=== PATIENT | male | born 1935 | race Hispanic/Latino ===

== ENCOUNTER 2016-11-22 15:50 | Inpatient (IN) | payer MEDICARE, BC ==
[2016-11-22 15:50] VITALS: PULSE 117; BMI 27.1
[2016-11-22] MEDS ORDERED: Albuterol-Ipratrop 3 mg / 0.5 (3 ml) UD ONE ×2 (16:06→18:22)
[2016-11-22] MEDS ORDERED: Albuterol 0.083% Inhal Sol (2.5 mg/3 mL) UD IH STA ×2 (16:13→18:06)
[2016-11-22] MEDS ORDERED: Albuterol-Ipratrop 3 mg / 0.5 (3 ml) UD INH STA ×2 (16:13→18:07)
[2016-11-22] MEDS ORDERED: Albuterol 0.083% Inhal Sol (2.5 mg/3 mL) UD ONE ×2 (16:18→18:23)
[2016-11-22 16:24] LABS: BASO # 0.1 K/uL (0.0-0.2); BASO % 0.6 % (0.0-2.0); EOS # 0.5 K/uL (0.0-0.7); EOS % 3.7 % (0.0-4.0); HEMATOCRIT 41.3 % (35.0-51.0); LYMPH % 8.1 % (20.0-40.0); MEAN CELL VOLUME 95.8 fL (80.0-94.0); MEAN CORPUSCULAR HEMOGLOBIN 31.9 pg (27.0-31.0); MEAN CORPUSCULAR HGB CONC 33.3 g/dL (33.0-37.0); MEAN PLATELET VOLUME 8.2 fL (7.2-11.7); MONO % 8.1 % (0.0-10.0); NRBC % 0.1 % (0.0-2.0); PLATELET COUNT 305 K/uL (130-400); RED CELL DISTRIBUTION WIDTH 15.9 % (11.5-14.5); WHITE BLOOD COUNT 12.4 K/uL (4.8-10.8)
[2016-11-22 16:33] LABS: INR 1.1
[2016-11-22 16:34] LABS: CHLORIDE 97 mmol/L (98-107)
[2016-11-22 16:35] LABS: POTASSIUM 4.3 mmol/L (3.6-5.2); SODIUM 136 mmol/L (132-148)
[2016-11-22 16:37] LABS: ALB/GLOB RATIO 1.2 (1.0-2.1); ALKALINE PHOSPHATASE 84 U/L (38-126); AST/SGOT 23 U/L (17-59); BILIRUBIN,TOTAL 1.1 mg/dL (0.2-1.3); CARBON DIOXIDE 28 mmol/L (22-30); GFR AFRICAN-AMERICAN > 60; TOTAL PROTEIN 7.6 g/dL (6.3-8.3)
[2016-11-22 16:38] LABS: ALT/SGPT 26 U/L (21-72); BLOOD UREA NITROGEN 16 mg/dL (9-20); CALCIUM 8.9 mg/dl (8.6-10.4); GLUCOSE,RANDOM 113 mg/dL (75-110)
--- NOTE | 2016-11-22 16:42 | RAD ---
PROCEDURE: CHEST RADIOGRAPH, 1 VIEW HISTORY: SOB COMPARISON: 10/18/2016 FINDINGS: LUNGS: Clear. PLEURA: No definite pleural effusion. Opacity at the lateral left lung base may represent pleural fluid or pleural thickening. There is some blunting of left costophrenic angle as well. The right costophrenic angle is clear. There is no pneumothorax. CARDIOVASCULAR: Normal. OSSEOUS STRUCTURES: No significant abnormalities. VISUALIZED UPPER ABDOMEN: Normal. OTHER FINDINGS: None. IMPRESSION: Possible small left pleural effusion versus chronic pleural thickening. Otherwise unremarkable.
[2016-11-22 16:57] LABS: EOSINOPHIL 1 % (0-4); NEUTROPHIL 86 % (50-75); TOTAL CELLS COUNTED 100
--- NOTE | 2016-11-22 17:15 | C.PDOC ---
History Of Present Illness 81 y/o male presents to ED for evaluation of worsening shortness of breath. Patient states that he fell 1 month ago causing rib fracture with pneumothorax. Patient has pleural effusion on the left side. Patient states his symptoms have been ongoing since the injury but symptoms became worse yesterday. Otherwise, denies cough, fever, chills, nausea, vomiting, chest pain, or leg edema. Time Seen by Provider: 11/22/16 15:58 Chief Complaint (Nursing): Shortness Of Breath History Per: Patient History/Exam Limitations: no limitations Onset/Duration Of Symptoms: Days Current Symptoms Are (Timing): Still Present Severity: None Pain Scale Rating Of: 0 Associated Symptoms: denies: Fever, Chills, Sweating, Chest Pain, Bloody Cough, Productive Cough, Heart Racing, Leg/Calf Pain, Ankle/Leg Swelling, Dizziness, Light-headedness, Anxiety, Tingling In Hands Or Face, Musle Spasms In Hands Or Feet Additional History Per: Patient Past Medical History Reviewed: Historical Data, Nursing Documentation, Vital Signs Vital Signs: Last Vital Signs Temp 97.4 F L 11/22/16 15:55 Pulse 110 H 11/22/16 18:02 Resp 18 11/22/16 18:02 BP 134/83 11/22/16 18:02 Pulse Ox 98 11/22/16 18:40 - Medical History PMH: Anxiety, Asthma, COPD, HTN, Hypercholesterolemia - [facility] Procedures CATARAC PHACOEMULS/ASPIR (04/23/03) INSERT LENS AT CATAR EXT (04/23/03) Family History: States: Unknown Family Hx - Social History Hx Alcohol Use: No Hx Substance Use: No - Immunization History Hx Tetanus Toxoid Vaccination: No Hx Influenza Vaccination: No Hx Pneumococcal Vaccination: No Review Of Systems Except As Marked, All Systems Reviewed And Found Negative. Constitutional: Negative for: Fever, Chills Cardiovascular: Negative for: Chest Pain, Palpitations Respiratory: Positive for: Shortness of Breath. Negative for: Cough Gastrointestinal: Negative for: Nausea, Vomiting, Abdominal Pain Neurological: Negative for: Headache, Dizziness Physical Exam - Physical Exam Appears: Non-toxic, Other (In mild to moderate respiratory distress) Skin: Warm, Dry, No Rash Head: Normacephalic Eye(s): bilateral: Normal Inspection Oral Mucosa: Moist Neck: Supple Cardiovascular: Rhythm Irregular (Irregularly irregular, tachycardic) Respiratory: Accessory Muscle Use (moderate), No Rales, No Rhonchi, Wheezing ( diffuse expiratory wheezing bilaterally), Other (Pt speaking in short sentences) Gastrointestinal/Abdominal: Soft, No Tenderness Back: No CVA Tenderness Extremity: Normal ROM, No Pedal Edema, Capillary Refill (<2 secs.), No Deformity , Other (scattered abrasions to b/l shins) Neurological/Psych: Oriented x3, Normal Speech ED Course And Treatment - Laboratory Results Result Diagrams: 11/22/16 16:18 11/22/16 16:18 ECG: Interpreted By Me, Viewed By Me (atrial fibrillation 124 bpm (RVR), normal axis, no acute ST/T wave changes) ECG Interpretation: Abnormal O2 Sat by Pulse Oximetry: 98 (RA) Pulse Ox Interpretation: Normal - Other Rad CXR X-Ray: Viewed By Me, Read By Radiologist Interpretation: Accession No. : [id number]. Patient Name / ID : TEETEE MARISCAL / [id number]. Exam Date : 11/22/2016 16:18:22 ( Approved ). Study Comment : Sex / Age : M / 81Y. Creator : David Roberts MD. Dictator : David Roberts MD. Rackman : Postal Service Clerk : David Roberts MD. Approver2 : Report Date : 11/22/2016 16:41:29. My Comment : . PROCEDURE: CHEST RADIOGRAPH, 1 VIEW. HISTORY: SOB. COMPARISON: 10/18/2016. FINDINGS: LUNGS: Clear. PLEURA: No definite pleural effusion. Opacity at the lateral left lung base may represent pleural fluid or pleural thickening. There is some blunting of left costophrenic angle as well. The right costophrenic angle is clear. There is no pneumothorax. CARDIOVASCULAR: Normal. OSSEOUS STRUCTURES: No significant abnormalities. VISUALIZED UPPER ABDOMEN: Normal. OTHER FINDINGS: None. IMPRESSION: Possible small left pleural effusion versus chronic pleural thickening. Otherwise unremarkable. Progress Note: Blood work, UA, CXR ordered and reviewed. Patient given IV solumedrol, neb treatments and placed on Vapotherm. Disposition - Disposition Forms: Livevol (Romansh) - Scribe Statement The provider has reviewed the documentation as recorded by the Scribe Skyler Andre All medical record entries made by the Scribe were at my direction and personally dictated by me. I have reviewed the chart and agree that the record accurately reflects my personal performance of the history, physical exam, medical decision making, and the department course for this patient. I have also personally directed, reviewed, and agree with the discharge instructions and disposition.
[2016-11-22] MEDS: Albuterol-Ipratrop 3 mg / 0.5 (3 ml) UD INH SCH (22:55)
[2016-11-23] MEDS: Albuterol-Ipratrop 3 mg / 0.5 (3 ml) UD INH SCH ×4 (01:21→19:45)
[2016-11-23 11:02] LABS: ABG ALLEN TEST YES; ARTERIAL BLOOD HGB O2 SAT 93.4 % (95.0-98.0); DRAW SITE RRA; HHB 3.8 % (0.0-5.0); METHEMOGLOBIN 0.7 % (0.0-3.0)
--- NOTE | 2016-11-23 15:32 | CARD ---
APPROVED REPORT EKG Measurement Heart [id number] <Conclusion> Atrial fibrillation with rapid ventricular response Abnormal ECG
--- NOTE | 2016-11-23 19:36 | PCM.PSYCH ---
Initial Psychiatric Evaluation - Initial Psychiatric Evaluation Type of Admission: Voluntary Legal Status: Capacity Chief Complaint (in patient's own words): "I was very despondent" History of Present Illness and Precipitating Events: The pt is seen, chart reviewed and case discussed Consultation was asked for his suicide remark. 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 The patient admits to having an accident and he broke his ribs and hurt his head about 6 weeks ago. He came year with breathing problems. He was told, allegedly, that he will have to stay 6 weeks and that made him feel "extremely sad" and somewhat angry. He said he would rather . He claims he didn't mean it and he has no plan or intention to hurt himself but at the same time he states that he cannot state that long no matter what. He reports mildly depressive symptoms even before admission but nothing severe and no major anxiety issues. No cyn or psychosis elicited No drug use but he drinks 1/2 bottle of wince everyday. he says he has been drinking "all (his) life." Denies ever having withdrawal sxs or treatment for alcohol. Past psych history: Denies Medical history: As per chart Family psych history: Denies Current Medications: Active Medications Generic Name Dose Route Start Last Admin Trade Name Cy PRN Reason Stop Dose Admin Albuterol/Ipratropium 3 ml 11/22/16 20:00 11/23/16 13:34 Duoneb 3 Mg/0.5 Mg (3 Ml) Ud INH 3 ml RQ6 [facility] Administration Apixaban 2.5 mg 11/22/16 22:00 11/23/16 10:34 Eliquis PO 2.5 mg Q12 [facility] Administration Clonazepam 0.5 mg 11/22/16 22:30 11/22/16 22:41 Klonopin PO 0.5 mg HS [facility] Administration Diltiazem HCl 30 mg 11/22/16 22:00 11/23/16 14:50 Cardizem PO 30 mg QID [facility] Administration Furosemide 20 mg 11/23/16 10:00 11/23/16 10:34 Lasix PO 20 mg DAILY [facility] Administration Mirtazapine 7.5 mg 11/23/16 22:00 Remeron PO HS [facility] Pneumococcal Polyvalent Vaccine 0.5 ml 11/24/16 10:00 Pneumovax 23 Vaccine IM 11/24/16 10:01 .ONCE ONE Quetiapine Fumarate 25 mg 11/23/16 10:00 11/23/16 10:34 Seroquel PO 25 mg DAILY [facility] Administration Past Psychiatric History - Past Psychiatric History Previous Treatment History: None Pertinent Medical Hx (Current Medical&Sleep Prob, Allergies): Allergies Allergy/AdvReac Type Severity Reaction Status Date / Time No Known Allergies Allergy Verified 11/22/16 15:54 metFORMIN [glucOPHAGE] 500 mg PO DAILY 07/11/16 Amlodipine Bes/Olmesartan Med [Amlodipine-Olmesartan 5-20 mg] 1 each PO Metoprolol Tartrate 25 mg PO DAILY 11/22/16 Review of Systems - Psychiatric Psychiatric: Abnormal Sleep Pattern, Anhedonia, Difficulty Concentrating, Irritability. absent: Hallucinations, Homicidal Ideation, Paranoia, Suicidal Ideation Mental Status Examination - Personal Presentation Personal Presentation: Looks stated age - Affect Affect: Constricted - Motor Activity Motor Activity: Calm - Reliability in Providing Information Reliability in Providing Information: Good - Speech Speech: Organized - Mood Mood: Depressed (mild), Anxious (at times) - Formal Thought Process Formal Thought Process: No Impairment - Cognitive Functions Orientation: Person, Place, Situation, Time Sensorium: Alert Attention/Concentration: Easily distracted Estimate of Intelligence: Average Judgement: Intact, as evidence by: Insight regarding need for hospitalization Memory: Recent intact, as evidence by: Ability to recall events of the day, Remote intact, as evidenced by: Abilit to recall sig. life events - Risk Risk: Diminished functioning - Strength & Assets Inventory Strength & Assets Inventory: Cooperative - Limitations Limitations: Other DSM 5 DX - DSM 5 DSM 5 Diagnosis: Depressive d/o - unspecified r/o adjustment d/o with depressed mood alcohol use d/o - mild (or unspecified severity) - Recommended/Plan of Treatment Treatment Recommendations and Plan of Treatment: Remeron 7.5 mg for now Support and psychoeducation Monitor sxs Currently no need for 1:1 - discontinued He contracts for safety and will follow his discussed safety plan. 32 min
[2016-11-24] MEDS: Albuterol-Ipratrop 3 mg / 0.5 (3 ml) UD INH SCH ×4 (01:44→19:52)
[2016-11-24] MEDS ORDERED: Influenza Vaccine 60 mcg/0.5 mL SYR (4YR UP) IM ONE (10:00)
[2016-11-24] MEDS ORDERED: Pneumococcal 23-Valent Vaccine IM ONE (10:00)
--- NOTE | 2016-11-24 15:13 | PCM.PYCHPN ---
Psychiatric Progress Note - Psychiatric Progress Note Patient seen today, length of contact: 16 min Patient Chief Complaint: Follow up consult for pt's suicide remark the other day "I feel fine" Problems Identified/Issues Discussed: Pt is seen at bedside and chart reviewed. He reports to feel well today and in a pleasant mood because his girlfriend plans to visit this afternoon. He emphasizes his desire to go home but otherwise has no complaints and denies anxiety, depression and SI. Pt is compliant with medications and reports no side effects. Support and psychoeducation given. Medication Change: No Medical Record Reviewed: Yes Mental Status Examination - Cognitive Function Orientation: Person, Place, Situation, Time Memory: Intact Attention: WNL Concentration: WNL Association: WNL Fund of Knowledge: WNL - Mood Mood: Anxious - Affect Affect: Constricted - Speech Speech: Appropriate - Formal Thought Process Formal Thought Process: No Impairment - Suicidal Ideation Suicidal Ideation: No - Homicidal Ideation Homicidal Ideation: No Goal/Treatment Plan - Goal/Treatment Plan Progress Toward Problem(s) and Goals/Treatment Plan: Remeron 7.5 mg for now Support and psychoeducation Monitor sxs Currently no need for 1:1 - discontinued He contracts for safety and will follow his discussed safety plan. 16 min
--- NOTE | 2016-11-24 21:31 | CP.PCM.PN ---
Subjective - Date & Time of Evaluation Date of Evaluation: 11/23/16 Time of Evaluation: 21:31 - Subjective Subjective: Patient today was combining of somewhat very depression. He was combining of some feeling depressed. Also killing himself. Immediately psychotic evaluation was called. Insomnia noted. No chest pain. Significant shortness of breath noted. Currently on continuous CPAP. On examination: Respiratory distress with the breathing room air noted. Oxygen minimal improvement. But patient needs a continuous BiPAP on and off Clinically otherwise stable. 81-year-old male with a history of hypertension, hypercholesterolemia, atrial fibrillation. On anticoagulations. Patient had a multiple fractures on the left side, complicated with the flail chest. And associated with acute on chronic respiratory failure. Patient is currently having significant mechanical problems with this patient because of the left lung collapse dynamically happens with the each time he breathes in. Patient will need a positive pressure ventilation. Patient is not a surgical candidate. He will only benefited by having you noninvasive ventilation, in the form of BiPAP, or Portable ventilators. Patient definitely medically needed for the respiratory insufficiency. GI prophylaxis. We'll continue the current medical management. Objective - Vital Signs/Intake and Output Vital Signs (last 24 hours): Temp Pulse Resp BP Pulse Ox 97.4 F L 103 H 22 153/83 H 98 11/24/16 15:00 11/24/16 17:30 11/24/16 15:00 11/24/16 15:00 11/24/16 15:00 Intake and Output: 11/24/16 11/25/16 18:59 06:59 Intake Total 240 Balance 240 - Medications Medications: Current Medications Albuterol/Ipratropium (Duoneb 3 Mg/0.5 Mg (3 Ml) Ud) 3 ml INH RQ6 [facility] Last Admin: 11/24/16 19:52 Dose: 3 ml Apixaban (Eliquis) 2.5 mg PO Q12 [facility] Last Admin: 11/24/16 09:52 Dose: 2.5 mg Clonazepam (Klonopin) 0.5 mg PO HS [facility] Last Admin: 11/23/16 21:52 Dose: 0.5 mg Diltiazem HCl (Cardizem) 30 mg PO QID [facility] Last Admin: 11/24/16 17:35 Dose: 30 mg Furosemide (Lasix) 20 mg PO DAILY [facility] Last Admin: 11/24/16 09:52 Dose: 20 mg Mirtazapine (Remeron) 7.5 mg PO HS [facility] Last Admin: 11/23/16 21:52 Dose: 7.5 mg Quetiapine Fumarate (Seroquel) 25 mg PO DAILY [facility] Last Admin: 11/24/16 09:52 Dose: 25 mg - Labs Labs: 11/22/16 16:18 11/22/16 16:18 PT 12.4 SECONDS (9.7-12.2) H 11/22/16 16:18 INR 1.1 11/22/16 16:18 APTT 29 SECONDS (21-34) 11/22/16 16:18
--- NOTE | 2016-11-24 21:31 | CP.PCM.HP ---
History of Present Illness - History of Present Illness History of Present Illness: Chief complaints: Shortness of breath. History of present illness: 81-year-old male with history of abdominal aortic aneurysm, hypertension, atrial fibrillation on anticoagulation, recently had a fall, injury to the left side of the chest. 2 months ago, patient was hospitalized at [facility], at the time patient was noted to have a multiple rib fractures on the left side, developed hydropneumothorax, and also hemopneumothorax. Patient also developed subcutaneous emphysema. Patient condition slowly got worse, complicated, and again he went to the [facility] and hospitalized. He stayed at least 2-3 times in the hospital. He is stayed in the [facility], each time, patient was sent home without any proper follow-up. This time, patient was able to see the claims collector, but at that time, patient was not able to breathe, and family brought him to the [facility] emergency room. Patient was combining of severe SOB, even at rest. Patient was placed on oxygen in the emergency room, bronchodilators were given. He was feeling slightly better. Patient condition before the fracture was okay. He was able to manage himself. But, after the fracture. His condition got worse. He is having severe shortness of breath even at rest. Unable to move. He is not able to sleep or lie down flat because of the shortness of breath. Past medical history: Hypertension, hypercholesterolemia, atrial fibrillation, history of aortic aneurysm. Surgical history: Abdominal aortic aneurysm repair. Allergies no known drug allergy. Personal history: Used to be a heavy smoker in the past to quit many years ago, denies any alcohol. Family history noncontributory. Review of systems: Combining of no headache, cough noted, cough with shortness of breath, wheezing and chest tightness. Patient is having some difficulty even at rest. On examination: Vital signs mild tachycardia, arrhythmia noted. Chest very reduced air entry in the left lower lung field. There is a significant flail chest, noted on the left side. Patient is having difficulty in breathing in at rest. Accessory muscle usage noted. Significant inward movement of the left lung with the inspiration noted on the left side. irregular heart sounds. Abdomen soft. Edema bilaterally, minimally noted. Patient's labs reviewed. Nonspecific. Chest x-ray showing multiple fractures in the left lung. Atelectatic left lower lung. Pleural effusion. Blood gas analysis reviewed. Assessment and recommendation: 81-year-old male with a history of hypertension, hypercholesterolemia, atrial fibrillation. On anticoagulations. Patient had a multiple fractures on the left side, complicated with the flail chest. And associated with acute on chronic respiratory failure. Patient is currently having significant mechanical problems with this patient because of the left lung collapse dynamically happens with the each time he breathes in. Patient will need a positive pressure ventilation. Patient is not a surgical candidate. He will only benefited by having you noninvasive ventilation, in the form of BiPAP, or Portable ventilators. Patient definitely medically needed for the respiratory insufficiency. GI prophylaxis. We'll continue the current medical management. Present on Admission - Present on Admission Any Indicators Present on Admission: No History of DVT/PE: No History of Uncontrolled Diabetes: No Urinary Catheter: No Decubitus Ulcer Present: No Past Patient History - Infectious Disease Hx of Infectious Diseases: None - Past Medical History & Family History Past Medical History?: Yes - Past Social History Smoking Status: Former Smoker - CARDIAC Hx Cardiac Disorders: Yes Hx Hypercholesterolemia: Yes Hx Hypertension: Yes - PULMONARY Hx Chronic Obstructive Pulmonary Disease (COPD): Yes - NEUROLOGICAL Hx Neurological Disorder: No - HEENT Hx HEENT Problems: No - RENAL Hx Chronic Kidney Disease: No - ENDOCRINE/METABOLIC Hx Diabetes Mellitus Type 2: Yes - HEMATOLOGICAL/ONCOLOGICAL Hx Blood Disorders: No - INTEGUMENTARY Hx Dermatological Problems: No - MUSCULOSKELETAL/RHEUMATOLOGICAL Hx Musculoskeletal Disorders: Yes Hx Falls: Yes - GASTROINTESTINAL Hx Gastrointestinal Disorders: No - GENITOURINARY/GYNECOLOGICAL Hx Genitourinary Disorders: No - PSYCHIATRIC Hx Psychophysiologic Disorder: Yes Hx Anxiety: Yes Hx Substance Use: No - SURGICAL HISTORY Hx Surgeries: Yes Hx Herniorrhaphy: Yes - ANESTHESIA Hx Anesthesia: Yes Hx Anesthesia Reactions: No Hx Malignant Hyperthermia: No Has any member of the family had a problem w/ anesthesia?: No Meds Allergies/Adverse Reactions: Allergies Allergy/AdvReac Type Severity Reaction Status Date / Time No Known Allergies Allergy Verified 11/22/16 15:54 Results - Vital Signs Recent Vital Signs: Last Vital Signs Temp 97.4 F L 11/24/16 15:00 Pulse 103 H 11/24/16 17:30 Resp 22 11/24/16 15:00 BP 153/83 H 11/24/16 15:00 Pulse Ox 98 11/24/16 15:00 - Labs Result Diagrams: 11/22/16 16:18 11/22/16 16:18 Labs: Laboratory Results - last 24 hr 11/23/16 11/24/16 11/24/16 21:43 06:49 11:17 POC Glucose (mg/dL) 124 H 97 134 H
--- NOTE | 2016-11-24 21:31 | CP.PCM.PN ---
Subjective - Date & Time of Evaluation Date of Evaluation: 11/24/16 Time of Evaluation: 21:31 - Subjective Subjective: Patient overall condition remains same. His respiratory status is not improving. Significant shortness of breath at rest noted. Left lung. Dynamic collapse identified. On examination: Vital signs stable. Chest reduced, a decreased air entry, left lung. Regular heart sounds. Assessment/condition: 81-year-old male with a history of hypertension, hypercholesterolemia, atrial fibrillation. On anticoagulations. Patient had a multiple fractures on the left side, complicated with the flail chest. And associated with acute on chronic respiratory failure. Patient is continuously using the BiPAP. Definitely clinically better. Patient has medical improvement with the BiPAP. In my opinion, patient will need a medically necessary to have BiPAP, noninvasive ventilation for his overall improvement. Objective - Vital Signs/Intake and Output Vital Signs (last 24 hours): Temp Pulse Resp BP Pulse Ox 97.4 F L 103 H 22 153/83 H 98 11/24/16 15:00 11/24/16 17:30 11/24/16 15:00 11/24/16 15:00 11/24/16 15:00 Intake and Output: 11/24/16 11/25/16 18:59 06:59 Intake Total 240 Balance 240 - Medications Medications: Current Medications Albuterol/Ipratropium (Duoneb 3 Mg/0.5 Mg (3 Ml) Ud) 3 ml INH RQ6 [facility] Last Admin: 11/24/16 19:52 Dose: 3 ml Apixaban (Eliquis) 2.5 mg PO Q12 [facility] Last Admin: 11/24/16 09:52 Dose: 2.5 mg Clonazepam (Klonopin) 0.5 mg PO HS [facility] Last Admin: 11/23/16 21:52 Dose: 0.5 mg Diltiazem HCl (Cardizem) 30 mg PO QID [facility] Last Admin: 11/24/16 17:35 Dose: 30 mg Furosemide (Lasix) 20 mg PO DAILY [facility] Last Admin: 11/24/16 09:52 Dose: 20 mg Mirtazapine (Remeron) 7.5 mg PO HS [facility] Last Admin: 11/23/16 21:52 Dose: 7.5 mg Quetiapine Fumarate (Seroquel) 25 mg PO DAILY [facility] Last Admin: 10/06/17 09:52 Dose: 25 mg - Labs Labs: 11/22/16 16:18 11/22/16 16:18 PT 12.4 SECONDS (9.7-12.2) H 11/22/16 16:18 INR 1.1 11/22/16 16:18 APTT 29 SECONDS (21-34) 11/22/16 16:18
[2016-11-25] MEDS: Albuterol-Ipratrop 3 mg / 0.5 (3 ml) UD INH SCH ×4 (01:10→19:41)
--- NOTE | 2016-11-25 16:06 | CP.PCM.PN ---
Subjective - Date & Time of Evaluation Date of Evaluation: 11/25/16 Time of Evaluation: 16:05 - Subjective Subjective: please disregard---entered in error. Objective - Vital Signs/Intake and Output Vital Signs (last 24 hours): Temp Pulse Resp BP Pulse Ox 97.7 F 84 20 135/71 99 11/25/16 08:29 11/25/16 14:23 11/25/16 08:29 11/25/16 09:27 11/25/16 08:29 Intake and Output: 11/25/16 11/25/16 06:59 18:59 Intake Total 110 Balance 110 - Medications Medications: Current Medications Albuterol/Ipratropium (Duoneb 3 Mg/0.5 Mg (3 Ml) Ud) 3 ml INH RQ6 [facility] Last Admin: 11/25/16 14:22 Dose: 3 ml Apixaban (Eliquis) 2.5 mg PO Q12 [facility] Last Admin: 11/25/16 09:29 Dose: 2.5 mg Clonazepam (Klonopin) 0.5 mg PO HS [facility] Last Admin: 11/24/16 21:58 Dose: 0.5 mg Diltiazem HCl (Cardizem) 30 mg PO QID [facility] Last Admin: 11/25/16 14:40 Dose: 30 mg Furosemide (Lasix) 20 mg PO DAILY [facility] Last Admin: 11/25/16 09:27 Dose: 20 mg Mirtazapine (Remeron) 7.5 mg PO HS [facility] Last Admin: 11/24/16 22:03 Dose: 7.5 mg Quetiapine Fumarate (Seroquel) 25 mg PO DAILY [facility] Last Admin: 11/25/16 09:28 Dose: 25 mg - Labs Labs: 11/22/16 16:18 11/22/16 16:18 PT 12.4 SECONDS (9.7-12.2) H 11/22/16 16:18 INR 1.1 11/22/16 16:18 APTT 29 SECONDS (21-34) 11/22/16 16:18
[2016-11-26] MEDS: Albuterol-Ipratrop 3 mg / 0.5 (3 ml) UD INH SCH ×4 (01:21→19:33)
--- NOTE | 2016-11-26 17:37 | CP.PCM.PN ---
Subjective - Date & Time of Evaluation Date of Evaluation: 11/25/16 Time of Evaluation: 17:37 - Subjective Subjective: Since overall condition remains same. No chest pain. Difficulty in breathing noted. Severe SOB without BiPAP noted. Patient is currently needing oxygen. Also, he needs BiPAP at this time. Vital signs stable. Assessment and recommendation: 81 male with a history of hypertension, emphysema, COPD, chronic respiratory failure, chronic respiratory insufficiency. Patient had multiple to fracture. Complicated with the flail chest. Acute on chronic respiratory failure, continue the noninvasive ventilation Objective - Vital Signs/Intake and Output Vital Signs (last 24 hours): Temp Pulse Resp BP Pulse Ox 97.1 F L 106 H 20 121/86 98 11/26/16 15:20 11/26/16 15:20 11/26/16 15:20 11/26/16 15:20 11/26/16 15:20 - Medications Medications: Current Medications Albuterol/Ipratropium (Duoneb 3 Mg/0.5 Mg (3 Ml) Ud) 3 ml INH RQ6 [facility] Last Admin: 11/26/16 13:40 Dose: 3 ml Apixaban (Eliquis) 2.5 mg PO Q12 [facility] Last Admin: 11/26/16 09:40 Dose: 2.5 mg Clonazepam (Klonopin) 0.5 mg PO HS [facility] Last Admin: 11/25/16 21:49 Dose: 0.5 mg Diltiazem HCl (Cardizem) 30 mg PO QID [facility] Last Admin: 11/26/16 13:34 Dose: 30 mg Furosemide (Lasix) 20 mg PO DAILY [facility] Last Admin: 11/26/16 09:41 Dose: 20 mg Mirtazapine (Remeron) 7.5 mg PO HS [facility] Last Admin: 11/25/16 21:49 Dose: 7.5 mg Quetiapine Fumarate (Seroquel) 25 mg PO DAILY [facility] Last Admin: 11/26/16 09:40 Dose: 25 mg - Labs Labs: 11/22/16 16:18 11/22/16 16:18 PT 12.4 SECONDS (9.7-12.2) H 11/22/16 16:18 INR 1.1 11/22/16 16:18 APTT 29 SECONDS (21-34) 11/22/16 16:18
--- NOTE | 2016-11-26 17:37 | CP.PCM.PN ---
Subjective - Date & Time of Evaluation Date of Evaluation: 11/26/16 Time of Evaluation: 17:37 - Subjective Subjective: Since overall condition remains same. No chest pain. Difficulty in breathing noted. Severe SOB without BiPAP noted. Patient is currently needing oxygen. Also, he needs BiPAP at this time. Vital signs stable. Assessment and recommendation: 81 male with a history of hypertension, emphysema, COPD, chronic respiratory failure, chronic respiratory insufficiency. Patient had multiple to fracture. Complicated with the flail chest. Acute on chronic respiratory failure, continue the noninvasive ventilation Objective - Vital Signs/Intake and Output Vital Signs (last 24 hours): Temp Pulse Resp BP Pulse Ox 97.1 F L 106 H 20 121/86 98 11/26/16 15:20 11/26/16 15:20 11/26/16 15:20 11/26/16 15:20 11/26/16 15:20 - Medications Medications: Current Medications Albuterol/Ipratropium (Duoneb 3 Mg/0.5 Mg (3 Ml) Ud) 3 ml INH RQ6 [facility] Last Admin: 11/26/16 13:40 Dose: 3 ml Apixaban (Eliquis) 2.5 mg PO Q12 [facility] Last Admin: 11/26/16 09:40 Dose: 2.5 mg Clonazepam (Klonopin) 0.5 mg PO HS [facility] Last Admin: 11/25/16 21:49 Dose: 0.5 mg Diltiazem HCl (Cardizem) 30 mg PO QID [facility] Last Admin: 11/26/16 13:34 Dose: 30 mg Furosemide (Lasix) 20 mg PO DAILY [facility] Last Admin: 11/26/16 09:41 Dose: 20 mg Mirtazapine (Remeron) 7.5 mg PO HS [facility] Last Admin: 11/25/16 21:49 Dose: 7.5 mg Quetiapine Fumarate (Seroquel) 25 mg PO DAILY [facility] Last Admin: 11/26/16 09:40 Dose: 25 mg - Labs Labs: 11/22/16 16:18 11/22/16 16:18 PT 12.4 SECONDS (9.7-12.2) H 11/22/16 16:18 INR 1.1 11/22/16 16:18 APTT 29 SECONDS (21-34) 11/22/16 16:18
[2016-11-27] MEDS: Albuterol-Ipratrop 3 mg / 0.5 (3 ml) UD INH SCH ×4 (01:19→19:36)
--- NOTE | 2016-11-27 15:22 | CP.PCM.PN ---
Subjective - Date & Time of Evaluation Date of Evaluation: 11/27/16 Time of Evaluation: 15:20 - Subjective Subjective: PT SEEN AND UPDATED REGARDING HOME O2. PER CM PAT PT'S DOCUMENTATION AND NEED FOR TRILOGY SENT TO [employer]---BEING THAT TODAY IS A HOLIDAY THESE COMPANIES AND REPS ARE ON VACATION AND WILL RETURN TOMORROW. 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 DISCUSSED THIS AT LENGTH WITH THE PT AND GIRLFRIEND AT BEDSIDE. NO FURTHER ORDERS. Objective - Vital Signs/Intake and Output Vital Signs (last 24 hours): Temp Pulse Resp BP Pulse Ox 97.3 F L 110 H 20 117/79 97 11/27/16 07:15 11/27/16 08:09 11/27/16 07:15 11/27/16 10:09 11/27/16 07:15 Intake and Output: 11/27/16 11/27/16 06:59 18:59 Intake Total 200 Output Total 600 Balance -400 - Medications Medications: Current Medications Albuterol/Ipratropium (Duoneb 3 Mg/0.5 Mg (3 Ml) Ud) 3 ml INH RQ6 [facility] Last Admin: 11/27/16 13:25 Dose: 3 ml Apixaban (Eliquis) 2.5 mg PO Q12 [facility] Last Admin: 11/27/16 10:09 Dose: 2.5 mg Clonazepam (Klonopin) 0.5 mg PO HS [facility] Last Admin: 11/26/16 22:25 Dose: 0.5 mg Diltiazem HCl (Cardizem) 30 mg PO QID [facility] Last Admin: 11/27/16 13:26 Dose: 30 mg Furosemide (Lasix) 20 mg PO DAILY [facility] Last Admin: 11/27/16 10:09 Dose: 20 mg Mirtazapine (Remeron) 7.5 mg PO HS [facility] Last Admin: 11/26/16 22:26 Dose: 7.5 mg Quetiapine Fumarate (Seroquel) 25 mg PO DAILY [facility] Last Admin: 11/27/16 10:12 Dose: 25 mg - Labs Labs: 11/22/16 16:18 11/22/16 16:18 PT 12.4 SECONDS (9.7-12.2) H 11/22/16 16:18 INR 1.1 11/22/16 16:18 APTT 29 SECONDS (21-34) 11/22/16 16:18
--- NOTE | 2016-11-28 16:03 | CP.PCM.PN ---
Subjective - Date & Time of Evaluation Date of Evaluation: 11/28/16 Time of Evaluation: 15:59 - Subjective Subjective: DISCUSSED HOME O2 WITH CM PAT AT LENGTH THROUGHOUT THE DAY. 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 PT MAY QUALIFY FOR BIPAP AT HOME BUT NEEDS NEW ABG DONE. BASED ON ABG RESULTS HE MAY OR MAY NOT QUALIFY FOR HOME O2 PER PAT. DR. ALLEN MADE AWARE; WE WILL ORDER ABG AT ROOM AIR AFTER AMBULATING IN HALLWAY WITH ASSISTANCE. IN THE MEANTIME, DR. ALLEN WILL HAVE HIS OFFICE CALL [facility] TO SEE IF THEY CAN GET A TRILOGY OR BIPAP FOR THE PT. PT AWARE THAT HE WILL BE D/C ONCE HOME O2 IS ARRANGED. NO FURTHER ORDERS AT THIS TIME. Objective - Vital Signs/Intake and Output Vital Signs (last 24 hours): Temp Pulse Resp BP Pulse Ox 98.0 F 79 20 117/79 94 L 11/28/16 15:45 11/28/16 15:45 11/28/16 15:45 11/28/16 15:45 11/28/16 15:45 Intake and Output: 11/28/16 11/28/16 06:59 18:59 Intake Total 220 Balance 220 - Medications Medications: Current Medications Apixaban (Eliquis) 2.5 mg PO Q12 [facility] Last Admin: 11/28/16 10:46 Dose: 2.5 mg Clonazepam (Klonopin) 0.5 mg PO HS [facility] Last Admin: 11/27/16 22:04 Dose: 0.5 mg Diltiazem HCl (Cardizem) 30 mg PO QID [facility] Last Admin: 11/28/16 14:44 Dose: 30 mg Furosemide (Lasix) 20 mg PO DAILY [facility] Last Admin: 11/28/16 10:47 Dose: 20 mg Mirtazapine (Remeron) 7.5 mg PO HS [facility] Last Admin: 11/27/16 22:04 Dose: 7.5 mg Quetiapine Fumarate (Seroquel) 25 mg PO DAILY [facility] Last Admin: 11/28/16 10:50 Dose: 25 mg - Labs Labs: 11/22/16 16:18 11/22/16 16:18 PT 12.4 SECONDS (9.7-12.2) H 11/22/16 16:18 INR 1.1 11/22/16 16:18 APTT 29 SECONDS (21-34) 11/22/16 16:18
--- NOTE | 2016-11-28 19:28 | CP.PCM.PN ---
Subjective - Date & Time of Evaluation Date of Evaluation: 11/28/16 Time of Evaluation: 19:28 Objective - Vital Signs/Intake and Output Vital Signs (last 24 hours): Temp Pulse Resp BP Pulse Ox 98.0 F 79 20 117/79 94 L 11/28/16 15:08 11/28/16 15:08 11/28/16 15:08 11/28/16 15:08 11/28/16 15:08 Intake and Output: 11/28/16 11/29/16 18:59 06:59 Intake Total 220 Balance 220 - Medications Medications: Current Medications Apixaban (Eliquis) 2.5 mg PO Q12 [facility] Last Admin: 11/28/16 10:46 Dose: 2.5 mg Clonazepam (Klonopin) 0.5 mg PO HS [facility] Last Admin: 11/27/16 22:04 Dose: 0.5 mg Diltiazem HCl (Cardizem) 30 mg PO QID [facility] Last Admin: 11/28/16 18:45 Dose: 30 mg Furosemide (Lasix) 20 mg PO DAILY [facility] Last Admin: 11/28/16 10:47 Dose: 20 mg Mirtazapine (Remeron) 7.5 mg PO HS [facility] Last Admin: 11/27/16 22:04 Dose: 7.5 mg Quetiapine Fumarate (Seroquel) 25 mg PO DAILY [facility] Last Admin: 11/28/16 10:50 Dose: 25 mg - Labs Labs: 11/22/16 16:18 11/22/16 16:18 PT 12.4 SECONDS (9.7-12.2) H 11/22/16 16:18 INR 1.1 11/22/16 16:18 APTT 29 SECONDS (21-34) 11/22/16 16:18
[2016-11-29 10:52] LABS: ARTERIAL BLOOD HGB O2 SAT 92.2 % (95.0-98.0); DRAW SITE L/B; HHB 4.9 % (0.0-5.0)
[2016-11-29 15:57] VITALS: RESP 20
--- NOTE | 2016-11-29 23:44 | CP.PCM.PN ---
Subjective - Date & Time of Evaluation Date of Evaluation: 11/29/16 Time of Evaluation: 23:44 Objective - Vital Signs/Intake and Output Vital Signs (last 24 hours): Temp Pulse Resp BP Pulse Ox 97.6 F 101 H 20 113/73 94 L 11/29/16 15:55 11/29/16 23:32 11/29/16 15:55 11/29/16 15:55 11/29/16 15:55 Intake and Output: 11/29/16 11/30/16 18:59 06:59 Intake Total 300 Balance 300 - Medications Medications: Current Medications Apixaban (Eliquis) 2.5 mg PO Q12 [facility] Last Admin: 11/29/16 22:41 Dose: 2.5 mg Clonazepam (Klonopin) 0.5 mg PO HS [facility] Last Admin: 11/29/16 22:40 Dose: 0.5 mg Diltiazem HCl (Cardizem) 30 mg PO QID [facility] Last Admin: 11/29/16 22:41 Dose: 30 mg Furosemide (Lasix) 20 mg PO DAILY [facility] Last Admin: 11/29/16 11:05 Dose: 20 mg Mirtazapine (Remeron) 7.5 mg PO HS [facility] Last Admin: 11/29/16 22:40 Dose: 7.5 mg Quetiapine Fumarate (Seroquel) 25 mg PO DAILY [facility] Last Admin: 11/29/16 11:05 Dose: 25 mg - Labs Labs: 11/22/16 16:18 11/22/16 16:18 PT 12.4 SECONDS (9.7-12.2) H 11/22/16 16:18 INR 1.1 11/22/16 16:18 APTT 29 SECONDS (21-34) 11/22/16 16:18
[2016-11-30 14:48] LABS: CHLORIDE 92 mmol/L (98-107); POTASSIUM 3.1 mmol/L (3.6-5.2); SODIUM 135 mmol/L (132-148)
[2016-11-30 14:51] LABS: BLOOD UREA NITROGEN 15 mg/dL (9-20); CARBON DIOXIDE 37 mmol/L (22-30); GFR AFRICAN-AMERICAN > 60; GLUCOSE,RANDOM 147 mg/dL (75-110)
[2016-11-30 14:52] LABS: CALCIUM 8.4 mg/dl (8.6-10.4)
[2016-11-30 15:40] VITALS: BP 109/79; PULSE 98; TEMP 97.5; O2SAT 97
[2016-11-30] MEDS ORDERED: Potassium Chloride 20 mEq ER Tab PO ONE (16:50)
--- NOTE | 2016-11-30 16:57 | CP.PCM.PN ---
Subjective - Date & Time of Evaluation Date of Evaluation: 11/30/16 Time of Evaluation: 12:00 - Subjective Subjective: RADIATION ONCOLOGIST NOTES Pt seen today , denies any chest pain, palpitations, dizziness, c/o sob on activity Objective - Vital Signs/Intake and Output Vital Signs (last 24 hours): Temp Pulse Resp BP Pulse Ox 97.5 F L 98 H 20 109/79 97 11/30/16 15:38 11/30/16 15:38 11/30/16 15:38 11/30/16 15:38 11/30/16 15:38 Intake and Output: 11/30/16 11/30/16 06:59 18:59 Intake Total 240 Balance 240 - Medications Medications: Current Medications Apixaban (Eliquis) 2.5 mg PO Q12 [facility] Last Admin: 11/30/16 10:25 Dose: 2.5 mg Clonazepam (Klonopin) 0.5 mg PO HS [facility] Last Admin: 11/29/16 22:40 Dose: 0.5 mg Diltiazem HCl (Cardizem) 30 mg PO QID [facility] Last Admin: 11/30/16 13:44 Dose: 30 mg Furosemide (Lasix) 20 mg PO DAILY [facility] Last Admin: 11/30/16 10:25 Dose: 20 mg Mirtazapine (Remeron) 7.5 mg PO HS [facility] Last Admin: 11/29/16 22:40 Dose: 7.5 mg Potassium Chloride (K-Dur 20 Meq Er Tab) 40 meq PO STAT [facility] Stop: 11/30/16 16:51 Quetiapine Fumarate (Seroquel) 25 mg PO DAILY [facility] Last Admin: 11/30/16 10:25 Dose: 25 mg - Labs Labs: 11/22/16 16:18 11/30/16 14:18 PT 12.4 SECONDS (9.7-12.2) H 11/22/16 16:18 INR 1.1 11/22/16 16:18 APTT 29 SECONDS (21-34) 11/22/16 16:18 Assessment and Plan - Assessment and Plan (Free Text) Assessment: A/P 81 yr old male admitted for worsening of SOB oxygen desaturates upon activity labs done today -k- 3.1 replaced with k nii Pateint refereed to [facility] for rehab and need BIPPAP accepted D/W Dr. Leon cleared fro discharge to [facility] today and Dr. Lan will follow the patient at [facility] Patient step daughter Veronica aware and agrees with plan Discharge plan discussed with patient who understands and agrees with plan
== END 2016-11-30 21:15 | DRG 205 ==
LOC: C.ER 15:50 → C.9E 18:06 → C.6T 19:15
PROVIDERS: ADMIT Internal Medicine; ATTEND Internal Medicine
PROC: 5A09557 Assistance with Respiratory Ventilation, Greater than 96 Consecutive Hours, Continuous Positive Airway Pressure (ICD-10-PCS; principal; 2016-11-22)
PROC: GZ56ZZZ Individual Psychotherapy, Supportive (ICD-10-PCS; 2016-11-24)
DX: J98.19 Other pulmonary collapse (principal); J96.20 Acute and chronic respiratory failure, unspecified whether with hypoxia or hypercapnia; T79.7XXA Traumatic subcutaneous emphysema, initial encounter; I48.91 Unspecified atrial fibrillation; J44.9 Chronic obstructive pulmonary disease, unspecified; I10 Essential (primary) hypertension; Z79.01 Long term (current) use of anticoagulants; Z86.79 Personal history of other diseases of the circulatory system; Z87.891 Personal history of nicotine dependence; E11.9 Type 2 diabetes mellitus without complications; F41.9 Anxiety disorder, unspecified; F32.9 Major depressive disorder, single episode, unspecified; F43.20 Adjustment disorder, unspecified; G47.00 Insomnia, unspecified; S22.5XXS Flail chest, sequela; X58.XXXS Exposure to other specified factors, sequela

== ENCOUNTER 2017-01-08 10:00 | Inpatient (IN) | payer MEDICARE, BC ==
[2017-01-08 10:00] VITALS: BMI 27.1
--- NOTE | 2017-01-08 10:18 | C.PDOC ---
History Of Present Illness Patient is a 81 y/o M presenting with shortness of breath. His medical history is significant for fall in September which caused him to develop acute on chronic respiratory failure due to multiple rib fractures and hemopneumothorax. He was discharged to rehab on bipap but left AMA. He reports that he is using home O2. He reports worsening shortness of breath x 1 week. He reports that his daughter spoke to his PMD Dr. Lan who reported that he should come to ED for further evaluation. Reports non-compliance with all medication. Time Seen by Provider: 01/08/17 10:02 Chief Complaint (Nursing): Shortness Of Breath Past Medical History Vital Signs: Last Vital Signs Temp 97.5 F L 01/08/17 10:04 Pulse 123 H 01/08/17 12:37 Resp 16 01/08/17 12:37 BP 125/83 01/08/17 12:37 Pulse Ox 96 01/08/17 12:37 - Medical History PMH: Anxiety, Asthma, COPD, HTN, Hypercholesterolemia Denies: Chronic Kidney Disease - [place] Procedures ASSISTANCE WITH RESPIRATORY VENTILATION, >96 HRS, CPAP (11/22/16) CATARAC PHACOEMULS/ASPIR (04/23/03) INDIVIDUAL PSYCHOTHERAPY, SUPPORTIVE (11/22/16) INSERT LENS AT CATAR EXT (04/23/03) Family History: States: Unknown Family Hx - Social History Hx Alcohol Use: No Hx Substance Use: No - Immunization History Hx Tetanus Toxoid Vaccination: No Hx Influenza Vaccination: No Hx Pneumococcal Vaccination: No Review Of Systems Constitutional: Positive for: Other (hx limited by patient's dementia). Negative for: Fever, Chills Cardiovascular: Negative for: Chest Pain, Palpitations, Edema, Light Headedness Respiratory: Positive for: Shortness of Breath, SOB with Excertion, Wheezing Gastrointestinal: Negative for: Nausea, Vomiting, Abdominal Pain, Diarrhea, Constipation Genitourinary: Negative for: Dysuria Neurological: Negative for: Weakness, Numbness, Headache Physical Exam - Physical Exam Appears: Well, Non-toxic, No Acute Distress Skin: Normal Color, Warm, Dry Head: Atraumatic, Normacephalic Eye(s): bilateral: Normal Inspection, PERRL, EOMI Neck: Supple Cardiovascular: Rhythm Irregular Respiratory: Decreased Breath Sounds, Wheezing (at R bases) Gastrointestinal/Abdominal: Soft, No Tenderness Back: Normal Inspection, No CVA Tenderness Extremity: Normal ROM, No Pedal Edema Neurological/Psych: Oriented x3 ED Course And Treatment - Laboratory Results Result Diagrams: 01/08/17 10:30 01/08/17 10:30 O2 Sat by Pulse Oximetry: 81 Medical Decision Making Medical Decision Making: EKG shows afib at 138bpm with non-specific ST changes. Cardizem, duoneb, and aspirin ordered. Cxray and labs ordered. Spoke to Dr. Lan and he recommends bipap as well. Heart rate improved after cardizem. Cxray negative for effusion. Trop negative. BNP mildly elevated. Improving with cpap. Will need tele admit Disposition Discussed With : Ludwig Lan - Disposition Disposition: HOSPITALIZED Disposition Time: 10:04 Condition: FAIR - Clinical Impression Clinical Impression: COPD (chronic obstructive pulmonary disease)
[2017-01-08] MEDS ORDERED: Albuterol-Ipratrop 3 mg / 0.5 (3 ml) UD INH STA (10:23)
[2017-01-08] MEDS ORDERED: Albuterol-Ipratrop 3 mg / 0.5 (3 ml) UD ONE ×2 (10:28→12:05)
[2017-01-08 10:37] LABS: BASO % 0.6 % (0.0-2.0); EOS # 0.8 K/uL (0.0-0.7); EOS % 9.6 % (0.0-4.0); HEMATOCRIT 41.8 % (35.0-51.0); LYMPH % 12.8 % (20.0-40.0); MEAN CORPUSCULAR HEMOGLOBIN 30.4 pg (27.0-31.0); MEAN CORPUSCULAR HGB CONC 32.7 g/dL (33.0-37.0); MEAN PLATELET VOLUME 8.1 fL (7.2-11.7); MONO % 12.9 % (0.0-10.0); NRBC % 0.2 % (0.0-2.0)
[2017-01-08 10:40] LABS: MEAN CELL VOLUME 92.9 fL (80.0-94.0)
[2017-01-08 10:51] LABS: INR 1.1
[2017-01-08 11:06] LABS: ALB/GLOB RATIO 0.9 (1.0-2.1); ALKALINE PHOSPHATASE 64 U/L (38-126); ALT/SGPT 36 U/L (21-72); AST/SGOT 27 U/L (17-59); BILIRUBIN,TOTAL 1.1 mg/dL (0.2-1.3); BLOOD UREA NITROGEN 19 mg/dL (9-20); CALCIUM 8.2 mg/dl (8.6-10.4); CHLORIDE 91 mmol/L (98-107); GFR AFRICAN-AMERICAN > 60; GLUCOSE,RANDOM 105 mg/dL (75-110); MAGNESIUM 1.3 mg/dL (1.6-2.3); PHOSPHOROUS 3.4 mg/dL (2.5-4.5); POTASSIUM 3.4 mmol/L (3.6-5.2); SODIUM 136 mmol/L (132-148)
[2017-01-08 11:14] LABS: CARBON DIOXIDE 39 mmol/L (22-30)
--- NOTE | 2017-01-08 12:57 | RAD ---
HISTORY: shortness of breath COMPARISON: 11/22/2016 TECHNIQUE: Chest PA and lateral FINDINGS: LUNGS: There is chronic blunting of the left costophrenic angle. Minimal interstitial changes are seen. No acute findings PLEURA: No significant pleural effusion identified. No pneumothorax apparent. CARDIOVASCULAR: Normal. OSSEOUS STRUCTURES: No significant abnormalities. VISUALIZED UPPER ABDOMEN: Normal. OTHER FINDINGS: None. IMPRESSION: No active disease.
[2017-01-08] MEDS: Albuterol-Ipratrop 3 mg / 0.5 (3 ml) UD INH SCH ×2 (14:00→19:51)
[2017-01-09] MEDS: Albuterol-Ipratrop 3 mg / 0.5 (3 ml) UD INH SCH ×4 (01:04→19:04)
[2017-01-09] MEDS: Potassium Chloride 20 mEq ER Tab PO SCH (09:23)
--- NOTE | 2017-01-09 22:05 | CP.PCM.HP ---
History of Present Illness - History of Present Illness History of Present Illness: Chief complaints: Shortness of breath. History of present illness: 81-year-old male with history of abdominal aortic aneurysm, hypertension, atrial fibrillation on anticoagulation, recently had a fall, injury to the left side of the chest. 2 months ago, patient was hospitalized at [facility], at the time patient was noted to have a multiple rib fractures on the left side, developed hydropneumothorax, and also hemopneumothorax. Patient also developed subcutaneous emphysema. Patient condition slowly got worse, complicated, and again he went to the [facility] and hospitalized. He stayed at least 2-3 times in the hospital. He is stayed in the [facility], each time, patient was sent home without any proper follow-up. pt daughter called me and concerned about his condition he is having more cough, sob at rest and unable to eat. he has severe wt loss and eating very poorly no nausea noted no vomiting pt is more confused and not taking his meds, he was more hypoxic in ed. Past medical history: Hypertension, hypercholesterolemia, atrial fibrillation, history of aortic aneurysm multiple rib fracture Surgical history: Abdominal aortic aneurysm repair. Allergies no known drug allergy. Personal history: Used to be a heavy smoker in the past to quit many years ago, denies any alcohol. Family history noncontributory. Review of systems: Combining of no headache, cough noted, cough with shortness of breath, wheezing and chest tightness. Patient is having some difficulty even at rest. On examination: Vital signs mild tachycardia, arrhythmia noted. Chest very reduced air entry in the left lower lung field. There is a significant flail chest, noted on the left side. Patient is having difficulty in breathing in at rest. Accessory muscle usage noted. Significant inward movement of the left lung with the inspiration noted on the left side. irregular heart sounds. Abdomen soft. Edema bilaterally, minimally noted. Patient's labs reviewed. Nonspecific. Chest x-ray showing multiple fractures in the left lung. Atelectatic left lower lung. Pleural effusion. Blood gas analysis reviewed. Assessment and recommendation: 81-year-old male with a history of hypertension, hypercholesterolemia, atrial fibrillation. On anticoagulations. Patient had a multiple fractures on the left side, complicated with the flail chest. And associated with acute on chronic respiratory failure. Patient is currently having significant mechanical problems with this patient because of the left lung collapse dynamically happens with the each time he breathes in. Patient will need a positive pressure ventilation. Patient is not a surgical candidate. He will only benefited by having you noninvasive ventilation, in the form of BiPAP, or Portable ventilators. Patient definitely medically needed for the respiratory insufficiency. GI prophylaxis. We'll continue the current medical management. Present on Admission - Present on Admission Any Indicators Present on Admission: No History of DVT/PE: No History of Uncontrolled Diabetes: No Urinary Catheter: No Decubitus Ulcer Present: No Past Patient History - Infectious Disease Hx of Infectious Diseases: None - Past Medical History & Family History Past Medical History?: Yes - Past Social History Smoking Status: Former Smoker - CARDIAC Hx Hypercholesterolemia: Yes Hx Hypertension: Yes - PULMONARY Hx Asthma: Yes Hx Chronic Obstructive Pulmonary Disease (COPD): Yes - NEUROLOGICAL Hx Neurological Disorder: No - HEENT Hx HEENT Problems: No - RENAL Hx Chronic Kidney Disease: No - ENDOCRINE/METABOLIC Hx Diabetes Mellitus Type 2: Yes - HEMATOLOGICAL/ONCOLOGICAL Hx Blood Disorders: No - INTEGUMENTARY Hx Dermatological Problems: No - MUSCULOSKELETAL/RHEUMATOLOGICAL Hx Musculoskeletal Disorders: Yes Hx Falls: Yes - GASTROINTESTINAL Hx Gastrointestinal Disorders: No - GENITOURINARY/GYNECOLOGICAL Hx Genitourinary Disorders: No - PSYCHIATRIC Hx Anxiety: Yes Hx Substance Use: No - SURGICAL HISTORY Hx Surgeries: Yes Hx Herniorrhaphy: Yes - ANESTHESIA Hx Anesthesia: Yes Hx Anesthesia Reactions: No Hx Malignant Hyperthermia: No Meds Allergies/Adverse Reactions: Allergies Allergy/AdvReac Type Severity Reaction Status Date / Time No Known Allergies Allergy Verified 01/08/17 10:07 Results - Vital Signs Recent Vital Signs: Last Vital Signs Temp 97.2 F L 01/09/17 15:57 Pulse 112 H 01/09/17 19:05 Resp 20 01/09/17 15:57 BP 118/80 01/09/17 15:57 Pulse Ox 98 01/09/17 15:57 - Labs Result Diagrams: 01/08/17 10:30 01/08/17 10:30 Assessment & Plan (1) Dementia Status: Acute (2) COPD (chronic obstructive pulmonary disease) Status: Acute
--- NOTE | 2017-01-09 22:16 | CP.PCM.PN ---
Subjective - Date & Time of Evaluation Date of Evaluation: 01/09/17 Time of Evaluation: 22:14 - Subjective Subjective: pt is having more sob using accessory muscle on bipap this am cough less poorly eating Objective - Vital Signs/Intake and Output Vital Signs (last 24 hours): Temp Pulse Resp BP Pulse Ox 97.2 F L 112 H 20 118/80 98 01/09/17 15:57 01/09/17 19:05 01/09/17 15:57 01/09/17 15:57 01/09/17 15:57 Intake and Output: 01/09/17 01/10/17 18:59 06:59 Intake Total 240 Balance 240 - Medications Medications: Current Medications Albuterol/Ipratropium (Duoneb 3 Mg/0.5 Mg (3 Ml) Ud) 3 ml INH RQ6 [facility] Last Admin: 01/09/17 19:04 Dose: 3 ml Apixaban (Eliquis) 5 mg PO Q12 [facility] Last Admin: 01/09/17 22:05 Dose: 5 mg Clonazepam (Klonopin) 0.5 mg PO HS [facility] Last Admin: 01/09/17 22:05 Dose: 0.5 mg Diltiazem HCl (Cardizem) 30 mg PO QID [facility] Last Admin: 01/09/17 22:05 Dose: 30 mg Furosemide (Lasix) 20 mg PO DAILY [facility] Last Admin: 01/09/17 09:24 Dose: 20 mg Mirtazapine (Remeron) 7.5 mg PO HS [facility] Last Admin: 01/09/17 22:05 Dose: 7.5 mg Potassium Chloride (K-Dur 20 Meq Er Tab) 20 meq PO DAILY [facility] Last Admin: 01/09/17 09:23 Dose: 20 meq Quetiapine Fumarate (Seroquel) 25 mg PO DAILY [facility] Last Admin: 01/09/17 13:09 Dose: 25 mg - Labs Labs: 01/08/17 10:30 01/08/17 10:30 PT 12.2 SECONDS (9.7-12.2) 01/08/17 10:30 INR 1.1 01/08/17 10:30 APTT 32 SECONDS (21-34) 01/08/17 10:30 Assessment and Plan (1) Dementia Status: Acute (2) COPD (chronic obstructive pulmonary disease) Status: Acute (3) Flail chest with nonunion Assessment & Plan: with mechanical problems respiratory failure Status: Acute
[2017-01-09] MEDS ORDERED: Magnesium Sulfate 1 gm in D5W 1 GM/100 ML BAG IVPB ONE (22:48)
[2017-01-10] MEDS: Albuterol-Ipratrop 3 mg / 0.5 (3 ml) UD INH SCH ×4 (01:34→19:48)
[2017-01-10 07:17] LABS: ALB/GLOB RATIO 0.9 (1.0-2.1); ALKALINE PHOSPHATASE 73 U/L (38-126); ALT/SGPT 34 U/L (21-72); AST/SGOT 27 U/L (17-59); BILIRUBIN,TOTAL 0.9 mg/dL (0.2-1.3); BLOOD UREA NITROGEN 18 mg/dL (9-20); CALCIUM 8.1 mg/dl (8.6-10.4); CHLORIDE 88 mmol/L (98-107); GFR AFRICAN-AMERICAN > 60; GLUCOSE,RANDOM 104 mg/dL (75-110); MAGNESIUM 1.4 mg/dL (1.6-2.3); POTASSIUM 3.5 mmol/L (3.6-5.2); SODIUM 137 mmol/L (132-148); TOTAL PROTEIN 8.1 g/dL (6.3-8.3)
[2017-01-10 07:25] LABS: BASO # 0.1 K/uL (0.0-0.2); BASO % 0.6 % (0.0-2.0); EOS % 9.7 % (0.0-4.0); HEMATOCRIT 42.4 % (35.0-51.0); LYMPH # 1.2 K/uL (1.0-4.3); MEAN CORPUSCULAR HEMOGLOBIN 30.3 pg (27.0-31.0); MEAN CORPUSCULAR HGB CONC 32.6 g/dL (33.0-37.0); MEAN PLATELET VOLUME 8.6 fL (7.2-11.7); MONO # 1.2 K/uL (0.0-0.8); MONO % 11.7 % (0.0-10.0); RED CELL DISTRIBUTION WIDTH 16.1 % (11.5-14.5); WHITE BLOOD COUNT 10.3 K/uL (4.8-10.8)
[2017-01-10 07:30] LABS: CARBON DIOXIDE 38 mmol/L (22-30)
[2017-01-10] MEDS ORDERED: Potassium Chloride 20 mEq/15 ml LIQ UD PO ONE (08:11)
[2017-01-10] MEDS: Magnesium Sulfate 1 gm in D5W 1 GM/100 ML BAG IVPB SCH ×2 (08:28→09:30)
--- NOTE | 2017-01-10 08:28 | CP.PCM.PN ---
Subjective - Date & Time of Evaluation Date of Evaluation: 01/10/17 Time of Evaluation: 08:26 - Subjective Subjective: pt has high HR tachypneic placed back on bipap confused not eating no fever cough noted but non productive Objective - Vital Signs/Intake and Output Vital Signs (last 24 hours): Temp Pulse Resp BP Pulse Ox 98.1 F 127 H 20 154/90 H 94 L 01/10/17 08:00 01/10/17 08:00 01/10/17 08:00 01/10/17 08:00 01/10/17 08:00 chest decreased air entry irregular hs abd soft non edema - Medications Medications: Current Medications Albuterol/Ipratropium (Duoneb 3 Mg/0.5 Mg (3 Ml) Ud) 3 ml INH RQ6 [facility] Last Admin: 01/10/17 07:17 Dose: 3 ml Apixaban (Eliquis) 5 mg PO Q12 [facility] Last Admin: 01/09/17 22:05 Dose: 5 mg Clonazepam (Klonopin) 0.5 mg PO HS [facility] Last Admin: 01/09/17 22:05 Dose: 0.5 mg Diltiazem HCl (Cardizem) 30 mg PO QID [facility] Last Admin: 01/09/17 22:05 Dose: 30 mg Furosemide (Lasix) 20 mg PO DAILY [facility] Last Admin: 01/09/17 09:24 Dose: 20 mg Magnesium Sulfate/Dextrose (Magnesium Sulfate 1 Gm/100 Ml D5w) 1 gm in 100 mls @ 100 mls/hr IVPB Q1H [facility] Stop: 01/10/17 10:14 Mirtazapine (Remeron) 7.5 mg PO HS [facility] Last Admin: 01/09/17 22:05 Dose: 7.5 mg Potassium Chloride (K-Dur 20 Meq Er Tab) 20 meq PO DAILY [facility] Last Admin: 01/09/17 09:23 Dose: 20 meq Quetiapine Fumarate (Seroquel) 25 mg PO DAILY [facility] Last Admin: 01/09/17 13:09 Dose: 25 mg - Labs Labs: 01/10/17 06:42 01/10/17 06:42 PT 12.2 SECONDS (9.7-12.2) 01/08/17 10:30 INR 1.1 01/08/17 10:30 APTT 32 SECONDS (21-34) 01/08/17 10:30 Assessment and Plan (1) Dementia Assessment & Plan: pt had confusion delirious on meds Status: Acute (2) COPD (chronic obstructive pulmonary disease) Assessment & Plan: will start steroid antibiotic BD bipap Status: Acute (3) Flail chest with nonunion Status: Acute
[2017-01-10] MEDS: Potassium Chloride 20 mEq ER Tab PO SCH (09:30)
[2017-01-10] MEDS: MethylPREDNISolone 40 mg Vial IVP SCH ×2 (09:32→22:14)
[2017-01-10] MEDS: cefTRIAXone IV 1 gm in Dextros 50 ML IVPB SCH ×2 (13:29→20:50)
[2017-01-10] MEDS ORDERED: Influenza Vaccine 60 mcg/0.5 mL SYR (4YR UP) IM ONE (14:00)
[2017-01-10] MEDS ORDERED: Pneumococcal 23-Valent Vaccine SC ONE (14:00)
--- NOTE | 2017-01-10 19:17 | CARD ---
APPROVED REPORT EKG Measurement Heart [id number] <Conclusion> Atrial fibrillation with rapid ventricular response Nonspecific ST and T wave abnormality Abnormal ECG
[2017-01-11] MEDS: Albuterol-Ipratrop 3 mg / 0.5 (3 ml) UD INH SCH ×4 (01:14→20:05)
[2017-01-11 06:40] LABS: BASO % 0.3 % (0.0-2.0); HEMATOCRIT 40.3 % (35.0-51.0); LYMPH # 0.4 K/uL (1.0-4.3); LYMPH % 5.6 % (20.0-40.0); MEAN CELL VOLUME 92.4 fL (80.0-94.0); MEAN CORPUSCULAR HEMOGLOBIN 30.1 pg (27.0-31.0); MEAN CORPUSCULAR HGB CONC 32.6 g/dL (33.0-37.0); MEAN PLATELET VOLUME 8.4 fL (7.2-11.7); MONO # 0.2 K/uL (0.0-0.8); MONO % 2.4 % (0.0-10.0); PLATELET COUNT 234 K/uL (130-400); WHITE BLOOD COUNT 6.6 K/uL (4.8-10.8)
[2017-01-11 08:33] LABS: ALB/GLOB RATIO 1.1 (1.0-2.1); ALKALINE PHOSPHATASE 71 U/L (38-126); ALT/SGPT 31 U/L (21-72); AST/SGOT 28 U/L (17-59); BLOOD UREA NITROGEN 27 mg/dL (9-20); CALCIUM 8.2 mg/dl (8.6-10.4); CARBON DIOXIDE 40 mmol/L (22-30); CHLORIDE 89 mmol/L (98-107); GFR AFRICAN-AMERICAN > 60; GLUCOSE,RANDOM 124 mg/dL (75-110); MAGNESIUM 1.8 mg/dL (1.6-2.3); POTASSIUM 4.4 mmol/L (3.6-5.2); SODIUM 135 mmol/L (132-148); TOTAL PROTEIN 6.9 g/dL (6.3-8.3)
[2017-01-11 09:30] LABS: NEUTROPHIL 92 % (50-75); TOTAL CELLS COUNTED 100
[2017-01-11 09:32] LABS: LARGE PLATELETS PRESENT
[2017-01-11 09:55] LABS: ABG ALLEN TEST POS; ARTERIAL BLOOD HGB O2 SAT 92.5 % (95.0-98.0); CARBOXYHEMOGLOBIN 2.3 % (0.5-1.5); DRAW SITE RRA; HHB 3.9 % (0.0-5.0); METHEMOGLOBIN 1.2 % (0.0-3.0)
[2017-01-11] MEDS: cefTRIAXone IV 1 gm in Dextros 50 ML IVPB SCH ×2 (09:59→21:18)
[2017-01-11] MEDS: Potassium Chloride 20 mEq ER Tab PO SCH (10:10)
[2017-01-11] MEDS: Digoxin 500 mcg/2ml (0.5 mg/2ml) Inj IVP SCH (10:16)
[2017-01-11] MEDS: MethylPREDNISolone 40 mg Vial IVP SCH ×2 (10:16→21:18)
--- NOTE | 2017-01-11 17:00 | RAD ---
HISTORY: SOB COMPARISON: Comparison is made to 01/08/2017 FINDINGS: LUNGS: Mild elevation and straightening of the inferior border of the left lung which could represent sub pulmonic effusion. The differential diagnosis includes left base atelectasis. Otherwise no interval change in the lungs P PLEURA: No significant pleural effusion identified, no pneumothorax apparent. CARDIOVASCULAR: Normal. OSSEOUS STRUCTURES: No significant abnormalities. VISUALIZED UPPER ABDOMEN: Normal. OTHER FINDINGS: None. IMPRESSION: New homogeneous opacity at the left lung base may represent subpulmonic effusion versus atelectasis. Otherwise no interval change.
--- NOTE | 2017-01-11 23:59 | CP.PCM.PN ---
Subjective - Date & Time of Evaluation Date of Evaluation: 01/11/17 Time of Evaluation: 23:59 - Subjective Subjective: mild worsening. CO2 retention noted. SOB Confused Objective - Vital Signs/Intake and Output Vital Signs (last 24 hours): Temp Pulse Resp BP Pulse Ox 97.4 F L 110 H 20 138/82 97 01/11/17 16:55 01/11/17 22:44 01/11/17 16:55 01/11/17 16:55 01/11/17 16:55 Intake and Output: 01/11/17 01/12/17 18:59 06:59 Intake Total 315 290 Balance 315 290 - Medications Medications: Current Medications Albuterol/Ipratropium (Duoneb 3 Mg/0.5 Mg (3 Ml) Ud) 3 ml INH RQ6 [facility] Last Admin: 01/11/17 20:05 Dose: 3 ml Apixaban (Eliquis) 5 mg PO Q12 [facility] Last Admin: 01/11/17 21:19 Dose: 5 mg Clonazepam (Klonopin) 0.5 mg PO HS [facility] Last Admin: 01/11/17 21:19 Dose: 0.5 mg Digoxin (Lanoxin) 0.125 mg IVP DAILY [facility] Last Admin: 01/11/17 10:16 Dose: 0.125 mg Diltiazem HCl (Cardizem) 30 mg PO QID [facility] Last Admin: 01/11/17 21:18 Dose: 30 mg Furosemide (Lasix) 20 mg PO DAILY [facility] Last Admin: 01/11/17 10:11 Dose: 20 mg Ceftriaxone Sodium (Rocephin Iv 1 Gm Duplex) 50 mls @ 100 mls/hr IVPB Q12H [facility] Stop: 01/13/17 09:01 Last Admin: 01/11/17 21:18 Dose: 100 mls/hr Methylprednisolone (Solu-Medrol) 40 mg IVP Q12 [facility] Stop: 01/13/17 10:01 Last Admin: 01/11/17 21:18 Dose: 40 mg Mirtazapine (Remeron) 7.5 mg PO HS [facility] Last Admin: 01/11/17 21:19 Dose: 7.5 mg Potassium Chloride (K-Dur 20 Meq Er Tab) 20 meq PO DAILY [facility] Last Admin: 01/11/17 10:10 Dose: 20 meq Quetiapine Fumarate (Seroquel) 25 mg PO DAILY [facility] Last Admin: 01/11/17 10:16 Dose: 25 mg - Labs Labs: 01/11/17 06:28 01/11/17 06:28 PT 12.2 SECONDS (9.7-12.2) 01/08/17 10:30 INR 1.1 01/08/17 10:30 APTT 32 SECONDS (21-34) 01/08/17 10:30 Assessment and Plan (1) Dementia Status: Acute (2) COPD (chronic obstructive pulmonary disease) Status: Acute (3) Flail chest with nonunion Status: Acute
[2017-01-12] MEDS: Albuterol-Ipratrop 3 mg / 0.5 (3 ml) UD INH SCH ×3 (01:10→14:28)
[2017-01-12] MEDS: cefTRIAXone IV 1 gm in Dextros 50 ML IVPB SCH (10:00)
[2017-01-12] MEDS: Potassium Chloride 20 mEq ER Tab PO SCH (11:10)
[2017-01-12] MEDS: Digoxin 500 mcg/2ml (0.5 mg/2ml) Inj IVP SCH (11:14)
[2017-01-12] MEDS: MethylPREDNISolone 40 mg Vial IVP SCH ×2 (11:20→21:21)
[2017-01-12] MEDS: Piperacill/Tazo 3.375gm in Dex 3.375 GM/50 ML BAG IVPB SCH ×2 (11:54→17:33)
[2017-01-13] MEDS: Piperacill/Tazo 3.375gm in Dex 3.375 GM/50 ML BAG IVPB SCH ×6 (00:18→23:51)
[2017-01-13] MEDS: Albuterol-Ipratrop 3 mg / 0.5 (3 ml) UD INH SCH ×3 (01:21→13:41)
[2017-01-13] MEDS: Potassium Chloride 20 mEq ER Tab PO SCH (10:00)
[2017-01-13] MEDS: Digoxin 500 mcg/2ml (0.5 mg/2ml) Inj IVP SCH (10:00)
[2017-01-13] MEDS: MethylPREDNISolone 40 mg Vial IVP SCH (10:01)
--- NOTE | 2017-01-13 22:28 | CP.PCM.CON ---
History of Present Illness - History of Present Illness History of Present Illness: 81 M with hx of A fib admitted for dyspnea HR under control Will continue anticoagulation Past Patient History - Infectious Disease Hx of Infectious Diseases: None - Past Medical History & Family History Past Medical History?: Yes - Past Social History Smoking Status: Former Smoker - CARDIAC Hx Hypercholesterolemia: Yes Hx Hypertension: Yes - PULMONARY Hx Chronic Obstructive Pulmonary Disease (COPD): Yes - NEUROLOGICAL Hx Neurological Disorder: No - HEENT Hx HEENT Problems: No - RENAL Hx Chronic Kidney Disease: No - ENDOCRINE/METABOLIC Hx Diabetes Mellitus Type 2: Yes - HEMATOLOGICAL/ONCOLOGICAL Hx Blood Disorders: No - INTEGUMENTARY Hx Dermatological Problems: No - MUSCULOSKELETAL/RHEUMATOLOGICAL Hx Musculoskeletal Disorders: Yes Hx Falls: Yes - GASTROINTESTINAL Hx Gastrointestinal Disorders: No - GENITOURINARY/GYNECOLOGICAL Hx Genitourinary Disorders: No - PSYCHIATRIC Hx Anxiety: Yes Hx Substance Use: No - SURGICAL HISTORY Hx Surgeries: Yes Hx Herniorrhaphy: Yes - ANESTHESIA Hx Anesthesia: Yes Hx Anesthesia Reactions: No Hx Malignant Hyperthermia: No Meds Allergies/Adverse Reactions: Allergies Allergy/AdvReac Type Severity Reaction Status Date / Time No Known Allergies Allergy Verified 01/08/17 10:07 - Medications Medications: Current Medications Apixaban (Eliquis) 5 mg PO Q12 [facility] Last Admin: 01/13/17 21:36 Dose: 5 mg Clonazepam (Klonopin) 0.5 mg PO HS [facility] Last Admin: 01/13/17 21:36 Dose: 0.5 mg Digoxin (Lanoxin) 0.125 mg IVP DAILY [facility] Last Admin: 01/13/17 10:00 Dose: 0.125 mg Diltiazem HCl (Cardizem) 30 mg PO QID [facility] Last Admin: 01/13/17 21:36 Dose: 30 mg Furosemide (Lasix) 20 mg PO DAILY [facility] Last Admin: 01/13/17 10:00 Dose: 20 mg Piperacillin Sod/Tazobactam Sod (Zosyn 3.375 Gm Iv Premix) 3.375 gm in 50 mls @ 100 mls/hr IVPB Q6H [facility] Last Admin: 01/13/17 17:49 Dose: 100 mls/hr Mirtazapine (Remeron) 7.5 mg PO HS [facility] Last Admin: 01/13/17 21:36 Dose: 7.5 mg Potassium Chloride (K-Dur 20 Meq Er Tab) 20 meq PO DAILY [facility] Last Admin: 01/13/17 10:00 Dose: 20 meq Quetiapine Fumarate (Seroquel) 25 mg PO DAILY [facility] Last Admin: 01/13/17 09:59 Dose: 25 mg Results - Vital Signs Recent Vital Signs: Last Vital Signs Temp 97.8 F 01/13/17 15:59 Pulse 108 H 01/13/17 16:00 Resp 20 01/13/17 15:59 BP 111/68 01/13/17 15:59 Pulse Ox 97 01/13/17 15:59 - Labs Result Diagrams: 01/11/17 06:28 01/11/17 06:28
[2017-01-14] MEDS: Piperacill/Tazo 3.375gm in Dex 3.375 GM/50 ML BAG IVPB SCH ×3 (05:17→21:58)
[2017-01-14] MEDS: Potassium Chloride 20 mEq ER Tab PO SCH (10:02)
[2017-01-14] MEDS: Digoxin 500 mcg/2ml (0.5 mg/2ml) Inj IVP SCH (10:02)
--- NOTE | 2017-01-14 13:29 | CP.PCM.PN ---
Subjective - Date & Time of Evaluation Date of Evaluation: 01/12/17 Time of Evaluation: 13:29 - Subjective Subjective: Patient is still having increasing SOB. Thick mucus with the dark mucus noted. Shortness of breath on exertion noted. Patient is definitely more confused. Patient is able to bring it out. I spoke to the patient's daughter in details Objective - Vital Signs/Intake and Output Vital Signs (last 24 hours): Temp Pulse Resp BP Pulse Ox 97.5 F L 116 H 20 139/89 94 L 01/12/17 10:09 01/12/17 11:40 01/12/17 10:09 01/12/17 10:09 01/12/17 10:09 Vital signs reviewed No neck vein distention noted Chest good air entry decreased rales noted CVS regular heart sound, no murmur noted Abdomen soft, nontender. 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 no functional neurological deficit Intake and Output: 01/14/17 01/14/17 06:59 18:59 Intake Total 500 Output Total 150 Balance 350 - Medications Medications: Current Medications Apixaban (Eliquis) 5 mg PO Q12 [facility] Clonazepam (Klonopin) 0.5 mg PO HS [facility] Digoxin (Lanoxin) 0.125 mg IVP DAILY [facility] Diltiazem HCl (Cardizem) 30 mg PO QID [facility] Furosemide (Lasix) 20 mg PO DAILY [facility] Potassium Chloride (K-Dur 20 Meq Er Tab) 20 meq PO DAILY [facility] Quetiapine Fumarate (Seroquel) 25 mg PO DAILY [facility] - Labs Labs: 01/11/17 06:28 01/11/17 06:28 PT 12.2 SECONDS (9.7-12.2) 01/08/17 10:30 INR 1.1 01/08/17 10:30 APTT 32 SECONDS (21-34) 01/08/17 10:30 - Constitutional Appears: Non-toxic Assessment and Plan (1) Dementia Status: Acute (2) COPD (chronic obstructive pulmonary disease) Assessment & Plan: COPD exacerbation. On antibiotic. 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
--- NOTE | 2017-01-14 13:33 | CP.PCM.PN ---
Subjective - Date & Time of Evaluation Date of Evaluation: 01/13/17 Time of Evaluation: 13:32 - Subjective Subjective: slightly more comfortable, mucus production less than yesterday, cough noted, no fever, no diarrhea, slightly eating better. Using the BiPAP at [facility], but patient is refusing sometimes. Confused. Objective - Vital Signs/Intake and Output Vital Signs (last 24 hours): Temp Pulse Resp BP Pulse Ox 97.5 F L 116 H 20 139/89 94 L 01/13/17 10:09 01/13/17 11:40 01/13/17 10:09 01/13/17 10:09 01/13/17 10:09 Intake and Output: 01/14/17 01/14/17 06:59 18:59 Intake Total 500 Output Total 150 Balance 350 - Medications Medications: Current Medications Apixaban (Eliquis) 5 mg PO Q12 [facility] Clonazepam (Klonopin) 0.5 mg PO HS [facility] Digoxin (Lanoxin) 0.125 mg IVP DAILY [facility] Diltiazem HCl (Cardizem) 30 mg PO QID [facility] Furosemide (Lasix) 20 mg PO DAILY [facility] Potassium Chloride (K-Dur 20 Meq Er Tab) 20 meq PO DAILY [facility] Quetiapine Fumarate (Seroquel) 25 mg PO DAILY [facility] - Labs Labs: 01/11/17 06:28 01/11/17 06:28 PT 12.2 SECONDS (9.7-12.2) 01/08/17 10:30 INR 1.1 01/08/17 10:30 APTT 32 SECONDS (21-34) 01/08/17 10:30 Vital signs reviewed No neck vein distention noted Chest good air entry bilaterally, no wheezing or rales noted CVS regular heart sound, no murmur noted Abdomen soft, nontender. 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 On corticosteroid, bronchodilator antibiotic. Will resume the Solu-Medrol Status: Acute (3) Flail chest with nonunion Status: Acute
--- NOTE | 2017-01-14 13:37 | CP.PCM.PN ---
Subjective - Date & Time of Evaluation Date of Evaluation: 01/14/17 Time of Evaluation: 13:35 - Subjective Subjective: patient this morning had his breakfast, less confused. More pleasant today. Less cough noted. Patient is having no fever. SOB less. Patient had a BM yesterday I spoke to the patient's daughter and explained about the patient's condition Objective - Vital Signs/Intake and Output Vital Signs (last 24 hours): Temp Pulse Resp BP Pulse Ox 97.5 F L 116 H 20 139/89 94 L 01/14/17 10:09 01/14/17 11:40 01/14/17 10:09 01/14/17 10:09 01/14/17 10:09 Vital signs reviewed No neck vein distention noted Chest good air entry bilaterally but decreased CVS regular heart sound, no murmur noted Abdomen soft, nontender. 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 alert but confused, no functional neurological deficit Intake and Output: 01/14/17 01/14/17 06:59 18:59 Intake Total 500 Output Total 150 Balance 350 - Medications Medications: Current Medications Apixaban (Eliquis) 5 mg PO Q12 [facility] Last Admin: 01/14/17 10:01 Dose: 5 mg Clonazepam (Klonopin) 0.5 mg PO HS [facility] Last Admin: 01/13/17 21:36 Dose: 0.5 mg Digoxin (Lanoxin) 0.125 mg IVP DAILY [facility] Last Admin: 01/14/17 10:02 Dose: 0.125 mg Diltiazem HCl (Cardizem) 30 mg PO QID [facility] Last Admin: 01/14/17 13:25 Dose: 30 mg Furosemide (Lasix) 20 mg PO DAILY [facility] Last Admin: 01/14/17 10:02 Dose: 20 mg Piperacillin Sod/Tazobactam Sod (Zosyn 3.375 Gm Iv Premix) 3.375 gm in 50 mls @ 100 mls/hr IVPB Q8 [facility] Lactobacillus Acidophilus (Bacid Acidophilus) 1 cap PO BID [facility] Mirtazapine (Remeron) 7.5 mg PO HS [facility] Last Admin: 01/13/17 21:36 Dose: 7.5 mg Potassium Chloride (K-Dur 20 Meq Er Tab) 20 meq PO DAILY [facility] Last Admin: 01/14/17 10:02 Dose: 20 meq Quetiapine Fumarate (Seroquel) 25 mg PO DAILY [facility] Last Admin: 01/14/17 10:02 Dose: 25 mg - Labs Labs: 01/11/17 06:28 01/11/17 06:28 PT 12.2 SECONDS (9.7-12.2) 01/08/17 10:30 INR 1.1 01/08/17 10:30 APTT 32 SECONDS (21-34) 01/08/17 10:30 Assessment and Plan (1) Dementia Assessment & Plan: patient has advanced dementia Patient dementia is somewhat stable now. Patient is still disoriented to place and time. Status: Acute (2) COPD (chronic obstructive pulmonary disease) Assessment & Plan: COPD exacerbation with CO2 retention. Underlying pneumonia, bronchitis. Currently on medications antibiotic, bronchodilator. Status: Acute (3) Flail chest with nonunion Status: Acute (4) Atrial fibrillation with rapid ventricular response Assessment & Plan: Atrial fibrillation with rapid ventricular rate. On Cardizem, digoxin. We'll continue the current treatment. On anticoagulation check labs Status: Acute
[2017-01-14] MEDS ORDERED: Piperacill/Tazo 3.375gm in Dex 3.375 GM/50 ML BAG IVPB SCH (14:00)
[2017-01-14] MEDS: Lactobacillus Acidophilus 500 MU Cap PO SCH (17:49)
[2017-01-14] MEDS: Albuterol-Ipratrop 3 mg / 0.5 (3 ml) UD INH SCH (19:55)
--- NOTE | 2017-01-14 20:05 | CP.PCM.PN ---
Subjective - Date & Time of Evaluation Date of Evaluation: 01/14/17 Time of Evaluation: 15:15 - Subjective Subjective: Patient seen and evaluated More awake today Not in distress A Fib on anticoagulation COPD on BiPAP Objective - Vital Signs/Intake and Output Vital Signs (last 24 hours): Temp Pulse Resp BP Pulse Ox 98.5 F 107 H 22 120/75 98 01/14/17 15:30 01/14/17 15:30 01/14/17 15:30 01/14/17 15:30 01/14/17 15:30 Intake and Output: 01/14/17 01/15/17 18:59 06:59 Intake Total 600 Output Total 700 Balance -100 - Medications Medications: Current Medications Albuterol/Ipratropium (Duoneb 3 Mg/0.5 Mg (3 Ml) Ud) 3 ml INH RQ6 [facility] Last Admin: 01/14/17 19:55 Dose: 3 ml Apixaban (Eliquis) 5 mg PO Q12 [facility] Last Admin: 01/14/17 10:01 Dose: 5 mg Clonazepam (Klonopin) 0.5 mg PO HS [facility] Last Admin: 01/13/17 21:36 Dose: 0.5 mg Digoxin (Lanoxin) 0.125 mg IVP DAILY [facility] Last Admin: 01/14/17 10:02 Dose: 0.125 mg Diltiazem HCl (Cardizem) 30 mg PO QID [facility] Last Admin: 01/14/17 17:49 Dose: 30 mg Furosemide (Lasix) 20 mg PO DAILY [facility] Last Admin: 01/14/17 10:02 Dose: 20 mg Piperacillin Sod/Tazobactam Sod (Zosyn 3.375 Gm Iv Premix) 3.375 gm in 50 mls @ 100 mls/hr IVPB 0400,1200,2000 [facility] Lactobacillus Acidophilus (Bacid Acidophilus) 1 cap PO BID [facility] Last Admin: 01/14/17 17:49 Dose: 1 cap Mirtazapine (Remeron) 7.5 mg PO HS [facility] Last Admin: 01/13/17 21:36 Dose: 7.5 mg Potassium Chloride (K-Dur 20 Meq Er Tab) 20 meq PO DAILY [facility] Last Admin: 01/14/17 10:02 Dose: 20 meq Quetiapine Fumarate (Seroquel) 25 mg PO DAILY [facility] Last Admin: 01/14/17 10:02 Dose: 25 mg - Labs Labs: 01/11/17 06:28 01/11/17 06:28 PT 12.2 SECONDS (9.7-12.2) 01/08/17 10:30 INR 1.1 01/08/17 10:30 APTT 32 SECONDS (21-34) 01/08/17 10:30
[2017-01-14 23:38] VITALS: RESP 20
[2017-01-15] MEDS: Albuterol-Ipratrop 3 mg / 0.5 (3 ml) UD INH SCH ×4 (01:18→19:26)
[2017-01-15] MEDS: Piperacill/Tazo 3.375gm in Dex 3.375 GM/50 ML BAG IVPB SCH ×3 (03:11→21:00)
[2017-01-15 06:19] LABS: EOS # 0.6 K/uL (0.0-0.7); HEMATOCRIT 41.2 % (35.0-51.0); LYMPH # 1.4 K/uL (1.0-4.3); LYMPH % 14.2 % (20.0-40.0); MEAN CELL VOLUME 91.2 fL (80.0-94.0); MEAN CORPUSCULAR HEMOGLOBIN 30.8 pg (27.0-31.0); MEAN CORPUSCULAR HGB CONC 33.7 g/dL (33.0-37.0); MEAN PLATELET VOLUME 8.5 fL (7.2-11.7); MONO # 1.3 K/uL (0.0-0.8); MONO % 13.1 % (0.0-10.0); RED CELL DISTRIBUTION WIDTH 16.3 % (11.5-14.5); WHITE BLOOD COUNT 10.1 K/uL (4.8-10.8)
--- NOTE | 2017-01-15 08:16 | CP.PCM.PN ---
Subjective - Date & Time of Evaluation Date of Evaluation: 01/15/17 Time of Evaluation: 08:13 - Subjective Subjective: patient is now sleeping. He is using the BiPAP. He is not in any distress. Comfortable at this time. I spoke to the patient's daughter from [place] today, she will be comingon Sunday he is still having episodes of confusion, usually in the morning time is more. Objective - Vital Signs/Intake and Output Vital Signs (last 24 hours): Temp Pulse Resp BP Pulse Ox 98.1 F 88 20 132/78 98 01/15/17 04:31 01/15/17 04:31 01/15/17 04:31 01/15/17 04:31 01/15/17 04:31 Intake and Output: Vital signs reviewed No neck vein distention noted Chest good air entry bilaterally, no wheezing or rales noted CVS regular heart sound, no murmur noted Abdomen soft, nontender. 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 -3, no functional neurological deficit - Medications Medications: Current Medications Albuterol/Ipratropium (Duoneb 3 Mg/0.5 Mg (3 Ml) Ud) 3 ml INH RQ6 [facility] Last Admin: 01/15/17 07:14 Dose: 3 ml Apixaban (Eliquis) 5 mg PO Q12 [facility] Last Admin: 01/14/17 21:59 Dose: 5 mg Clonazepam (Klonopin) 0.5 mg PO HS [facility] Last Admin: 01/14/17 21:59 Dose: 0.5 mg Digoxin (Lanoxin) 0.125 mg IVP DAILY [facility] Last Admin: 01/14/17 10:02 Dose: 0.125 mg Diltiazem HCl (Cardizem) 30 mg PO QID [facility] Last Admin: 01/14/17 21:59 Dose: 30 mg Furosemide (Lasix) 20 mg PO DAILY [facility] Last Admin: 01/14/17 10:02 Dose: 20 mg Piperacillin Sod/Tazobactam Sod (Zosyn 3.375 Gm Iv Premix) 3.375 gm in 50 mls @ 100 mls/hr IVPB 0400,1200,2000 [facility] Last Admin: 01/15/17 03:11 Dose: 100 mls/hr Lactobacillus Acidophilus (Bacid Acidophilus) 1 cap PO BID [facility] Last Admin: 01/14/17 17:49 Dose: 1 cap Mirtazapine (Remeron) 7.5 mg PO HS [facility] Last Admin: 01/14/17 21:59 Dose: 7.5 mg Potassium Chloride (K-Dur 20 Meq Er Tab) 20 meq PO DAILY [facility] Last Admin: 01/14/17 10:02 Dose: 20 meq Quetiapine Fumarate (Seroquel) 25 mg PO DAILY [facility] Last Admin: 01/14/17 10:02 Dose: 25 mg - Labs Labs: 01/15/17 06:06 01/11/17 06:28 PT 12.2 SECONDS (9.7-12.2) 01/08/17 10:30 INR 1.1 01/08/17 10:30 APTT 32 SECONDS (21-34) 01/08/17 10:30 Assessment and Plan (1) Dementia Status: Acute (2) COPD (chronic obstructive pulmonary disease) Assessment & Plan: patient definitely has a COPD exacerbation with that particular mucus production , responding to the antibiotic. Using the BiPAP for chronic respiratory failure,with a CO2 retention. Status: Acute (3) Flail chest with nonunion Assessment & Plan: flail chest, not improvingcomplicating the respiratory status Status: Acute (4) Atrial fibrillation with rapid ventricular response Assessment & Plan: patient rate is controlled well. On anticoagulation Status: Acute
[2017-01-15 08:44] LABS: CARBON DIOXIDE 39 mmol/L (22-30)
[2017-01-15 08:56] LABS: ALB/GLOB RATIO 1.1 (1.0-2.1); ALKALINE PHOSPHATASE 46 U/L (38-126); ALT/SGPT 16 U/L (21-72); AST/SGOT 21 U/L (17-59); BILIRUBIN,TOTAL 1.5 mg/dL (0.2-1.3); BLOOD UREA NITROGEN 44 mg/dL (9-20); CALCIUM 8.1 mg/dl (8.6-10.4); CHLORIDE 92 mmol/L (98-107); GFR AFRICAN-AMERICAN > 60; GLUCOSE,RANDOM 123 mg/dL (75-110); MAGNESIUM 1.6 mg/dL (1.6-2.3); POTASSIUM 3.9 mmol/L (3.6-5.2); SODIUM 136 mmol/L (132-148); TOTAL PROTEIN 5.8 g/dL (6.3-8.3)
--- NOTE | 2017-01-15 09:15 | RAD ---
HISTORY: chf COMPARISON: Comparison made with chest radiograph dated 01/15/2017 FINDINGS: LUNGS: Mild left basilar atelectasis and/or infiltrate. Slight blunting of the left CP angle again noted which probably represents either small amount of chronic pleural thickening and/or tiny PLEURA: As above. No apparent pneumothorax. CARDIOVASCULAR: Heart appears mildly enlarged. Aorta is ectatic and uncoiled with calcification along aortic knob. . There may also be a tiny calcified right paratracheal lymph node. OSSEOUS STRUCTURES: No significant abnormalities. VISUALIZED UPPER ABDOMEN: Normal. OTHER FINDINGS: None. IMPRESSION: Mild left basilar atelectasis and or infiltrate with what probably represents small amount of chronic pleural thickening and/or tiny left effusion.
[2017-01-15] MEDS: Lactobacillus Acidophilus 500 MU Cap PO SCH ×2 (09:41→18:11)
[2017-01-15] MEDS: Potassium Chloride 20 mEq ER Tab PO SCH (09:42)
--- NOTE | 2017-01-15 12:32 | CP.PCM.PN ---
Subjective - Date & Time of Evaluation Date of Evaluation: 01/15/17 Time of Evaluation: 12:26 - Subjective Subjective: PT CURRENTLY BEING EVALUATED FOR TRILOGY MACHINE TO USE AT HOME. PT HAS AN EXTENSIVE RESPIRATORY HISTORY INCLUDING MULTIPLE RIB FRACTURES WITH COMPLICATED FLAIL CHEST, LEFT LUNG COLLAPSE, AND RESPIRATORY DISTRESS. FREQUENT RECENT READMISSIONS DUE TO SEVERE COPD AND ACUTE ON CHRONIC RESPIRATORY FAILURE. PT HAS BEEN USING BIPAP SINCE ADMISSION BUT IS STILL SOB; LIKELY RESP FAILURE ON BIPAP. ARRANGEMENTS BEING MADE FOR HOME TRILOGY MACHINE. WILL F/U. Objective - Vital Signs/Intake and Output Vital Signs (last 24 hours): Temp Pulse Resp BP Pulse Ox 97.5 F L 110 H 20 132/78 97 01/15/17 08:40 01/15/17 08:40 01/15/17 08:40 01/15/17 09:41 01/15/17 08:40 - Medications Medications: Current Medications Albuterol/Ipratropium (Duoneb 3 Mg/0.5 Mg (3 Ml) Ud) 3 ml INH RQ6 [facility] Last Admin: 01/15/17 07:14 Dose: 3 ml Apixaban (Eliquis) 5 mg PO Q12 [facility] Last Admin: 01/15/17 09:42 Dose: 5 mg Clonazepam (Klonopin) 0.5 mg PO HS [facility] Last Admin: 01/14/17 21:59 Dose: 0.5 mg Digoxin (Lanoxin) 0.125 mg PO DAILY@1800 [facility] Diltiazem HCl (Cardizem) 30 mg PO QID [facility] Last Admin: 01/15/17 09:45 Dose: 30 mg Furosemide (Lasix) 20 mg PO DAILY [facility] Last Admin: 01/15/17 09:41 Dose: 20 mg Piperacillin Sod/Tazobactam Sod (Zosyn 3.375 Gm Iv Premix) 3.375 gm in 50 mls @ 100 mls/hr IVPB 0400,1200,2000 [facility] Last Admin: 01/15/17 11:51 Dose: 100 mls/hr Lactobacillus Acidophilus (Bacid Acidophilus) 1 cap PO BID [facility] Last Admin: 01/15/17 09:41 Dose: 1 cap Mirtazapine (Remeron) 7.5 mg PO HS [facility] Last Admin: 01/14/17 21:59 Dose: 7.5 mg Potassium Chloride (K-Dur 20 Meq Er Tab) 20 meq PO DAILY [facility] Last Admin: 01/15/17 09:42 Dose: 20 meq Quetiapine Fumarate (Seroquel) 25 mg PO DAILY [facility] Last Admin: 01/15/17 09:42 Dose: 25 mg - Labs Labs: 01/15/17 06:06 01/15/17 06:06 PT 12.2 SECONDS (9.7-12.2) 01/08/17 10:30 INR 1.1 01/08/17 10:30 APTT 32 SECONDS (21-34) 01/08/17 10:30
--- NOTE | 2017-01-15 12:52 | CP.PCM.PN ---
Subjective - Date & Time of Evaluation Date of Evaluation: 01/15/17 Time of Evaluation: 12:48 - Subjective Subjective: PT HAS RESPIRATORY FAILURE AND HYPERCAPNIA SEVERE COPD. PT NEEDS TRILOGY VENTILATOR, INTERRUPTION IN VENTILATION WILL CAUSE LIFE THREATENING EVENT WHICH MAY LEAD TO . PT HAS HYPERCAPNIA OF CO2 60, DESPITE BEING ON BIPAP. TRILOGY MACHINE HAS A BACKUP BATTERY IN CASE OF POWER FAILURE AT PT'S HOME. PT'S CO2 WAS 78 ON NASAL CANNULA; PCO2 WILL INCREASE IF NOT ON INVASIVE VENTILATOR. IT IS RECOMMENDED THAT PT BE ON CONTINUOUS NON-INVASIVE VENTILATION WITH TRILOGY. SPOKE TO PATIENT AT BEDSIDE AND EXPLAINED DIAGNOSIS AND TREATMENT OF HYPERCAPNIA, RESPIRATORY FAILURE, SEVERE COPD AND NEED FOR NON- INVASIVE VENTILATOR ON CONTINUOUS BASIS. PT UNDERSTAND AND AGREES TO THE TREATMENT PLAN DISCUSSED. Objective - Vital Signs/Intake and Output Vital Signs (last 24 hours): Temp Pulse Resp BP Pulse Ox 97.5 F L 110 H 20 132/78 97 01/15/17 08:40 01/15/17 08:40 01/15/17 08:40 01/15/17 09:41 01/15/17 08:40 - Medications Medications: Current Medications Albuterol/Ipratropium (Duoneb 3 Mg/0.5 Mg (3 Ml) Ud) 3 ml INH RQ6 [facility] Last Admin: 01/15/17 07:14 Dose: 3 ml Apixaban (Eliquis) 5 mg PO Q12 [facility] Last Admin: 01/15/17 09:42 Dose: 5 mg Clonazepam (Klonopin) 0.5 mg PO HS [facility] Last Admin: 01/14/17 21:59 Dose: 0.5 mg Digoxin (Lanoxin) 0.125 mg PO DAILY@1800 [facility] Diltiazem HCl (Cardizem) 30 mg PO QID [facility] Last Admin: 01/15/17 09:45 Dose: 30 mg Furosemide (Lasix) 20 mg PO DAILY [facility] Last Admin: 01/15/17 09:41 Dose: 20 mg Piperacillin Sod/Tazobactam Sod (Zosyn 3.375 Gm Iv Premix) 3.375 gm in 50 mls @ 100 mls/hr IVPB 0400,1200,2000 [facility] Last Admin: 01/15/17 11:51 Dose: 100 mls/hr Lactobacillus Acidophilus (Bacid Acidophilus) 1 cap PO BID [facility] Last Admin: 01/15/17 09:41 Dose: 1 cap Mirtazapine (Remeron) 7.5 mg PO HS [facility] Last Admin: 01/14/17 21:59 Dose: 7.5 mg Potassium Chloride (K-Dur 20 Meq Er Tab) 20 meq PO DAILY [facility] Last Admin: 01/15/17 09:42 Dose: 20 meq Quetiapine Fumarate (Seroquel) 25 mg PO DAILY [facility] Last Admin: 01/15/17 09:42 Dose: 25 mg - Labs Labs: 01/15/17 06:06 01/15/17 06:06 PT 12.2 SECONDS (9.7-12.2) 01/08/17 10:30 INR 1.1 01/08/17 10:30 APTT 32 SECONDS (21-34) 01/08/17 10:30
[2017-01-15 12:53] LABS: ABG ALLEN TEST POS; ARTERIAL BLOOD GAS MODE BiPAP; ARTERIAL BLOOD HGB O2 SAT 94.8 % (95.0-98.0); CARBOXYHEMOGLOBIN 2.5 % (0.5-1.5); DRAW SITE RRA; HHB 1.2 % (0.0-5.0); METHEMOGLOBIN 1.6 % (0.0-3.0)
[2017-01-15] MEDS: Digoxin 125 mcg (0.125 mg) Tab PO SCH (18:11)
[2017-01-15 18:12] VITALS: PULSE 98
[2017-01-16] MEDS: Albuterol-Ipratrop 3 mg / 0.5 (3 ml) UD INH SCH ×3 (01:19→13:14)
[2017-01-16] MEDS: Piperacill/Tazo 3.375gm in Dex 3.375 GM/50 ML BAG IVPB SCH ×2 (03:59→12:40)
[2017-01-16] MEDS: Potassium Chloride 20 mEq ER Tab PO SCH (10:21)
[2017-01-16] MEDS: Lactobacillus Acidophilus 500 MU Cap PO SCH ×2 (10:22→17:41)
--- NOTE | 2017-01-16 15:44 | CP.PCM.PN ---
Subjective - Date & Time of Evaluation Date of Evaluation: 01/16/17 Time of Evaluation: 15:44 - Subjective Subjective: PT CLEARED FOR D/C HOME TODAY PER DR. ALLEN. PT APPROVED FOR TRILOGY MACHINE AND IT WILL BE DELIVERED TO THE PT'S HOME SOON HE ARRIVES. ALL ARRANGEMENTS HAVE BEEN MADE BY [facility]. WAITING FOR AMBULANCE TRANSPORT HOME. D/C PLAN AND F/U INFORMATION DISCUSSED WITH PT AND SIGNIFICANT OTHER. NO FURTHER ORDERS. Objective - Vital Signs/Intake and Output Vital Signs (last 24 hours): Temp Pulse Resp BP Pulse Ox 97.4 F L 98 H 20 118/78 97 01/16/17 08:00 01/16/17 13:39 01/16/17 08:00 01/16/17 10:28 01/16/17 08:00 Intake and Output: 01/16/17 01/16/17 06:59 18:59 Intake Total 150 Balance 150 - Medications Medications: Current Medications Albuterol/Ipratropium (Duoneb 3 Mg/0.5 Mg (3 Ml) Ud) 3 ml INH RQ6 [facility] Last Admin: 01/16/17 13:14 Dose: Not Given Apixaban (Eliquis) 5 mg PO Q12 [facility] Last Admin: 01/16/17 10:20 Dose: 5 mg Clonazepam (Klonopin) 0.5 mg PO HS [facility] Last Admin: 01/15/17 21:38 Dose: 0.5 mg Digoxin (Lanoxin) 0.125 mg PO DAILY@1800 [facility] Last Admin: 01/15/17 18:11 Dose: 0.125 mg Diltiazem HCl (Cardizem) 30 mg PO QID [facility] Last Admin: 01/16/17 14:01 Dose: 30 mg Furosemide (Lasix) 20 mg PO DAILY [facility] Last Admin: 01/16/17 10:28 Dose: 20 mg Piperacillin Sod/Tazobactam Sod (Zosyn 3.375 Gm Iv Premix) 3.375 gm in 50 mls @ 100 mls/hr IVPB 0400,1200,2000 [facility] Last Admin: 01/16/17 12:40 Dose: 100 mls/hr Lactobacillus Acidophilus (Bacid Acidophilus) 1 cap PO BID [facility] Last Admin: 01/16/17 10:22 Dose: 1 cap Mirtazapine (Remeron) 7.5 mg PO HS [facility] Last Admin: 01/15/17 21:30 Dose: 7.5 mg Potassium Chloride (K-Dur 20 Meq Er Tab) 20 meq PO DAILY BECKY Last Admin: 01/16/17 10:21 Dose: 20 meq Quetiapine Fumarate (Seroquel) 25 mg PO DAILY [facility] Last Admin: 01/16/17 10:22 Dose: 25 mg - Labs Labs: 01/15/17 06:06 01/15/17 06:06 PT 12.2 SECONDS (9.7-12.2) 01/08/17 10:30 INR 1.1 01/08/17 10:30 APTT 32 SECONDS (21-34) 01/08/17 10:30
[2017-01-16 15:55] VITALS: PULSE 96; O2SAT 93
[2017-01-16 16:38] VITALS: BP 107/70; TEMP 98.1
[2017-01-16] MEDS: Digoxin 125 mcg (0.125 mg) Tab PO SCH (17:41)
--- NOTE | 2017-01-16 20:27 | CP.PCM.DIS ---
Provider - Provider Date of Admission: 01/08/17 11:18 Attending physician: Ludwig Allen MD Time Spent in preparation of Discharge (in minutes): 45 Diagnosis - Discharge Diagnosis (1) Dementia Status: Acute (2) COPD (chronic obstructive pulmonary disease) Status: Acute (3) Flail chest with nonunion Status: Acute (4) Atrial fibrillation with rapid ventricular response Status: Acute Hospital Course - Lab Results Lab Results: Most Recent Lab Values WBC 10.1 K/uL (4.8-10.8) D 01/15/17 06:06 RBC 4.51 Mil/uL (4.40-5.90) 01/15/17 06:06 Hgb 13.9 g/dL (12.0-18.0) 01/15/17 06:06 Hct 41.2 % (35.0-51.0) 01/15/17 06:06 MCV 91.2 fL (80.0-94.0) 01/15/17 06:06 MCH 30.8 pg (27.0-31.0) 01/15/17 06:06 MCHC 33.7 g/dL (33.0-37.0) 01/15/17 06:06 RDW 16.3 % (11.5-14.5) H 01/15/17 06:06 Plt Count 249 K/uL (130-400) 01/15/17 06:06 MPV 8.5 fL (7.2-11.7) 01/15/17 06:06 Neut % (Auto) 66.7 % (50.0-75.0) 01/15/17 06:06 Lymph % (Auto) 14.2 % (20.0-40.0) L 01/15/17 06:06 [place] % (Auto) 13.1 % (0.0-10.0) H 01/15/17 06:06 Eos % (Auto) 6.0 % (0.0-4.0) H 01/15/17 06:06 Baso % (Auto) 0.0 % (0.0-2.0) 01/15/17 06:06 Neut # 6.7 K/uL (1.8-7.0) 01/15/17 06:06 Lymph # 1.4 K/uL (1.0-4.3) 01/15/17 06:06 [place] # 1.3 K/uL (0.0-0.8) H 01/15/17 06:06 Eos # 0.6 K/uL (0.0-0.7) 01/15/17 06:06 Baso # 0.0 K/uL (0.0-0.2) 01/15/17 06:06 Neutrophils % (Manual) 92 % (50-75) H 01/11/17 06:28 Band Neutrophils % 1 % (0-2) 01/11/17 06:28 Lymphocytes % (Manual) 5 % (20-40) L 01/11/17 06:28 Monocytes % (Manual) 2 % (0-10) 01/11/17 06:28 Toxic Granulation Present 01/11/17 06:28 Platelet Estimate Normal (NORMAL) 01/11/17 06:28 Large Platelets Present 01/11/17 06:28 Polychromasia Slight 01/11/17 06:28 Hypochromasia (manual) Slight 01/11/17 06:28 Poikilocytosis (manual Slight 01/11/17 06:28 Anisocytosis (manual) Slight 01/11/17 06:28 Ovalocytes Slight 01/11/17 06:28 PT 12.2 SECONDS (9.7-12.2) 01/08/17 10:30 INR 1.1 01/08/17 10:30 APTT 32 SECONDS (21-34) 01/08/17 10:30 Puncture Site Rra 01/15/17 12:51 pCO2 60 mm/Hg (35-45) H 01/15/17 12:51 pO2 87 mm/Hg (80-100) 01/15/17 12:51 HCO3 37.2 mmol/L (21-28) H 01/15/17 12:51 ABG pH 7.46 (7.35-7.45) H 01/15/17 12:51 ABG Total CO2 44.5 mmol/L (22-28) H 01/15/17 12:51 ABG O2 Saturation 98.8 % (95-98) H 01/15/17 12:51 ABG Base Excess 15.8 mmol/L (-2.0-3.0) H 01/15/17 12:51 ABG Hemoglobin 13.8 g/dL (11.7-17.4) 01/15/17 12:51 ABG Carboxyhemoglobin 2.5 % (0.5-1.5) H 01/15/17 12:51 POC ABG HHb (Measured) 1.2 % (0.0-5.0) 01/15/17 12:51 ABG Methemoglobin 1.6 % (0.0-3.0) 01/15/17 12:51 Avelino Test Pos 01/15/17 12:51 A-a O2 Difference 123.0 mm/Hg 01/15/17 12:51 Respiratory Index 1.4 01/15/17 12:51 Hgb O2 Saturation 94.8 % (95.0-98.0) L 01/15/17 12:51 Liter Flow 5.0 01/11/17 09:42 Vent Mode Bipap 01/15/17 12:51 FiO2 40.0 % 01/15/17 12:51 Inspiratory BiPAP 12 01/15/17 12:51 Expiratory BiPAP 6 01/15/17 12:51 Crit Value Called To Matthieu dang 01/11/17 09:42 Crit Value Called By Kamron lanza 01/11/17 09:42 Crit Value Read Back Y 01/11/17 09:42 Blood Gas Notified Time 952 01/11/17 09:42 Sodium 136 mmol/L (132-148) 01/15/17 06:06 Potassium 3.9 mmol/L (3.6-5.2) 01/15/17 06:06 Chloride 92 mmol/L (98-107) L 01/15/17 06:06 Carbon Dioxide 39 mmol/L (22-30) H 01/15/17 06:06 Anion Gap 9 (10-20) L 01/15/17 06:06 BUN 44 mg/dL (9-20) H 01/15/17 06:06 Creatinine 0.7 mg/dL (0.8-1.5) L 01/15/17 06:06 Est GFR ( Amer) > 60 01/15/17 06:06 Est GFR (Non-Af Amer) > 60 01/15/17 06:06 Random Glucose 123 mg/dL (75-110) H 01/15/17 06:06 Calcium 8.1 mg/dl (8.6-10.4) L 01/15/17 06:06 Phosphorus 3.4 mg/dL (2.5-4.5) 01/08/17 10:30 Magnesium 1.6 mg/dL (1.6-2.3) 01/15/17 06:06 Total Bilirubin 1.5 mg/dL (0.2-1.3) H 01/15/17 06:06 AST 21 U/L (17-59) 01/15/17 06:06 ALT 16 U/L (21-72) L D 01/15/17 06:06 Alkaline Phosphatase 46 U/L (38-126) 01/15/17 06:06 Total Creatine Kinase 29 U/L (55-170) L 01/10/17 06:42 CK-MB (Mass) 1.47 ng/mL (0.0-3.38) 01/10/17 06:42 Troponin I 0.0140 ng/mL (0.00-0.120) 01/10/17 06:42 NT-Pro-B Natriuret Pep 1450 pg/mL (0-900) H 01/08/17 10:30 Total Protein 5.8 g/dL (6.3-8.3) L 01/15/17 06:06 Albumin 3.1 g/dL (3.5-5.0) L 01/15/17 06:06 Globulin 2.7 gm/dL (2.2-3.9) 01/15/17 06:06 Albumin/Globulin Ratio 1.1 (1.0-2.1) 01/15/17 06:06 - Hospital Course Hospital Course: Chief complaints: Shortness of breath. History of present illness: 81-year-old male with history of abdominal aortic aneurysm, hypertension, atrial fibrillation on anticoagulation, recently had a fall, injury to the left side of the chest. 2 months ago, patient was hospitalized at [facility], at the time patient was noted to have a multiple rib fractures on the left side, developed hydropneumothorax, and also hemopneumothorax. Patient also developed subcutaneous emphysema. Patient condition slowly got worse, complicated, and again he went to the [facility] and hospitalized. He stayed at least 2-3 times in the hospital. He is stayed [facility], each time, patient was sent home without any proper follow-up. pt daughter called me and concerned about his condition he is having more cough, sob at rest and unable to eat. he has severe wt loss and eating very poorly no nausea noted no vomiting pt is more confused and not taking his meds, he was more hypoxic in ed. Past medical history: Hypertension, hypercholesterolemia, atrial fibrillation, history of aortic aneurysm multiple rib fracture Surgical history: Abdominal aortic aneurysm repair. Allergies no known drug allergy. Personal history: Used to be a heavy smoker in the past to quit many years ago, denies any alcohol. Family history noncontributory. Review of systems: Combining of no headache, cough noted, cough with shortness of breath, wheezing and chest tightness. Patient is having some difficulty even at rest. On examination: Vital signs mild tachycardia, arrhythmia noted. Chest very reduced air entry in the left lower lung field. There is a significant flail chest, noted on the left side. Patient is having difficulty in breathing in at rest. Accessory muscle usage noted. Significant inward movement of the left lung with the inspiration noted on the left side. irregular heart sounds. Abdomen soft. Edema bilaterally, minimally noted. Patient's labs reviewed. Nonspecific. Chest x-ray showing multiple fractures in the left lung. Atelectatic left lower lung. Pleural effusion. Blood gas analysis reviewed. Assessment and recommendation: 81-year-old male with a history of hypertension, hypercholesterolemia, atrial fibrillation. On anticoagulations. Patient had a multiple fractures on the left side, complicated with the flail chest. And associated with acute on chronic respiratory failure. Patient is currently having significant mechanical problems with this patient because of the left lung collapse dynamically happens with the each time he breathes in. Patient will need a positive pressure ventilation. Patient is not a surgical candidate. He will only benefited by having you noninvasive ventilation, in the form of BiPAP, or Portable ventilators. Patient definitely medically needed for the respiratory insufficiency. GI prophylaxis. We'll continue the current medical management. Course in the hospital: The patient was initially hospitalized to the hospital with acute exacerbation of COPD. Also acute respiratory insufficiency. Patient also had a severe tachycardia, with atrial fibrillation. Similarly his rate is controlled with medications. But meanwhile his respiration got worse. Blood gas analysis showing evidence of CO2 retention. And also patient was having significant cough. Thick mucus production. Patient started on corticosteroids, bronchodilators, and intravenous antibiotic. Slowly his condition got better. He was also having episodes of confusion because of the corticosteroid, and dementia. Patient markedly improved. His respiration also got better. Patient had blood gas analysis showing evidence of CO2 retention, but compensating. Patient definitely will need a BiPAP. He has also needing oxygen. Patient is currently stable, he will be discharged home today. He will follow-up as an outpatient. Patient will continue oxygen. He will continue BiPAP, noninvasive ventilation in the house. Which was already arranged. His current medications reviewed Patient will be discharged home today, visiting nurse will be seeing the patient. Patient's daughter will be coming on Sunday. Will discuss further management as an outpatient. Final diagnoses: Acute respiratory failure, chronic ventilatory failure, prior chest, COPD, COPD but the CO2 retention. CAD, atelectatic aneurysm, atrial fibrillation, and anticoagulation afib Discharge Plan - Discharge Medications Prescriptions: Amoxicillin/Clavulanate [Augmentin 875 MG-125 MG] 1 tab PO Q12 #10 tab Lactobacillus Acidophilus [Bacid Acidophilus] 1 cap PO BID #60 cap diltiaZEM [Cardizem] 30 mg PO QID #120 tab Albuterol/Ipratropium [Duoneb 3 mg/0.5 mg (3 ml) UD] 3 ml INH RQ6 PRN #100 neb PRN Reason: wheezing, shortness of breath Apixaban [Eliquis] 5 mg PO Q12 #60 tab clonazePAM [Klonopin] 0.5 mg PO HS #30 tab Digoxin [Lanoxin] 0.125 mg PO DAILY@1800 #30 tab Furosemide [Lasix] 20 mg PO DAILY #30 tab Potassium Chloride 20 meq PO DAILY #30 tab.er.prt Mirtazapine [Remeron] 7.5 mg PO HS #30 tab QUEtiapine [Seroquel] 25 mg PO DAILY #30 tab - Follow Up Plan Condition: FAIR Disposition: HOME/ ROUTINE Instructions: Atrial Fibrillation (DC), Heart Healthy Diet (DC), Using Oxygen at Home (DC), COPD (Chronic Obstructive Pulmonary Disease) (DC) Additional Instructions: FOLLOW UP WITH DR. ALLEN IN THE OFFICE WITHIN 1 WEEK---CALL FOR APPT TIME. FOLLOW UP WITH DR. CONRAD (MIX[employer]) IN THE OFFICE WITHIN 2 WEEKS---CALL FOR APPT TIME. CONTINUE ALL OF YOUR HOME MEDICATIONS USUAL. REFILLS GIVEN FOR ALL YOUR MEDICINE AND YOU ARE TO TAKE YOUR MEDICATION EXACTLY PRESCRIBED. YOU WILL BE ON AN ANTIBIOTIC, AUGMENTIN, TWICE A DAY FOR 5 DAYS. TAKE WITH FOOD. YOU WILL ALSO TAKE BACID, A VITAMIN TO PROTECT YOUR GUT WHILE ON THE ANTIBIOTIC. MAKE SURE YOU CONTINUE USING YOUR HOME OXYGEN USUAL. YOU WILL NOW BE ABLE TO USE THE TRILOGY MACHINE TO HELP YOUR BREATHING AT BEDTIME. MAKE SURE YOU USE IT EXACTLY DIRECTED/RECOMMENDED. YOU WILL BE SEEN BY [facility] TO HELP YOU WITH YOUR MEDICATION MANAGEMENT. IF YOU HAVE ANY FURTHER CONCERNS OR QUESTIONS, CONTACT DR. ALLEN'S OFFICE. Referrals: Aron Conrad MD [Staff Provider] - Ludwig Allen MD [Staff Provider] -
== END 2017-01-16 19:50 | disposition home or self-care (01) | DRG 190 ==
LOC: C.ER 10:00 → C.9E 11:18 → C.6T 12:29
PROVIDERS: ADMIT Internal Medicine; ATTEND Internal Medicine
DX: J44.1 Chronic obstructive pulmonary disease with (acute) exacerbation (principal); J96.92 Respiratory failure, unspecified with hypercapnia; J98.19 Other pulmonary collapse; S22.5XXK Flail chest, subsequent encounter for fracture with nonunion; E11.9 Type 2 diabetes mellitus without complications; F03.90 Unspecified dementia, unspecified severity, without behavioral disturbance, psychotic disturbance, mood disturbance, and anxiety; E78.00 Pure hypercholesterolemia, unspecified; I10 Essential (primary) hypertension; I48.91 Unspecified atrial fibrillation; I25.10 Atherosclerotic heart disease of native coronary artery without angina pectoris; Z86.79 Personal history of other diseases of the circulatory system; Z87.891 Personal history of nicotine dependence; Z91.14 Patient's other noncompliance with medication regimen; Z79.01 Long term (current) use of anticoagulants; W19.XXXD Unspecified fall, subsequent encounter